=== PATIENT | male | born 1970 | race Caucasian/White ===

== ENCOUNTER 2018-10-02 21:07 | Inpatient (IN) | payer MEDICARE ==
[2018-10-02] MEDS ORDERED: HYDROcodone/Acetaminophen 5/325 mg Tablet ONE (22:31)
[2018-10-02 23:15] LABS: Troponin I Less than 0.010 ng/mL (< 0.028)
[2018-10-02] MEDS ORDERED: Ondansetron PF 4 MG/2 ML Vial IVP PRN (23:16)
[2018-10-02] MEDS ORDERED: Acetaminophen 325 MG TAB PO PRN (23:16)
[2018-10-02] MEDS ORDERED: Ondansetron ODT 4 MG TAB PO PRN (23:16)
[2018-10-02] MEDS ORDERED: Acetaminophen 650 MG Suppository PR PRN (23:16)
[2018-10-02] MEDS ORDERED: Senokot S 8.6-50 MG TAB PO PRN (23:16)
[2018-10-02] MEDS ORDERED: Dextrose 50% Abboject 50 ML SYRINGE SLOW IVP PRN (23:18)
[2018-10-02] MEDS ORDERED: HumaLOG 300 UNITS/3 ML VIAL SC PRN (23:18)
[2018-10-02] MEDS ORDERED: Dextrose 5% in Water 1,000 ML IV PRN (23:18)
[2018-10-02 23:36] VITALS: BMI 45.3
--- NOTE | 2018-10-03 00:26 | HP ---
REASON FOR ADMISSION: Right lower leg cellulitis. HISTORY OF PRESENT ILLNESS: Mr. Sal is a pleasant 48-year-old man with pain and erythema to the right lower leg. The patient states he had not noted a recurrent cellulitic infection until today when he was brought in to the ER at [place] by EMS after developing significant rigors during his Bible study this morning. He was noted to have a temperature of 102. It was until he was examined in the ER when it was noted he had redness and cellulitic appearance of the right lower leg to medial aspect of the right lower leg. He states he has had similar infections to the same location 4 times in the last few years. The patient was started on IV antibiotics with vancomycin as well as Zosyn. He was then transferred here. The patient states he had 1 episode of vomiting after drinking orange juice early hours this morning. He states he felt generally unwell since then. His rigors has settled as has his temperature. He reports recent diagnosis of diabetes mellitus and was started on metformin as well as insulin. He is unsure what type of insulin, but states he takes 6 units twice a day. The patient has run out of his medications and is not currently taking them. He admits to have poor compliance with medications and following up with his primary care physician. He also states he has been awaiting bariatric surgery. REVIEW OF SYSTEMS: He denies having any chest pain, palpitations, or shortness of breath. He has not had a cough. No further vomiting since the 1 episode early hours this morning. Denies having any abdominal pain. He has not moved his bowels today, but reports having a normal bowel movement yesterday. Denies having any dysuria, hematuria. He did have further tracking of the right lower leg cellulitis and new borders were drawn by the nurse practitioner at [place]. He had established his own border at home prior to coming in in order to assess for progression. It has been some further slight spreading past border than at [place]. He denies having any wounds or abscesses. Denies having any other skin changes. Denies any headaches or dizziness. All other review of systems is negative. ALLERGIES: NO KNOWN DRUG ALLERGIES. CURRENT MEDICATIONS: 1. Metformin. 2. Insulin, unknown type. PAST MEDICAL HISTORY: 1. Cardiac contusion causing atrial fibrillation, status post ablation, resolved. 2. Hyperlipidemia. 3. History of recurrent cellulitic infections of the right lower leg. 4. Type 2 diabetes mellitus. 5. Morbid obesity, awaiting bariatric surgery. 6. Bipolar disorder. PAST SURGICAL HISTORY: 1. Appendectomy in 1999. 2. Orthopedic surgery to the left hand/finger in 1987. SOCIAL HISTORY: The patient lives with his . He denies any alcohol use. He is a nonsmoker. Denies any illicit drug use. PHYSICAL EXAMINATION: GENERAL: The patient appears morbidly obese, in no acute distress. VITAL SIGNS: Temperature 99.7, pulse 77, respirations 16, O2 saturation 95% on room air, and blood pressure 131/81. HEENT: Normocephalic and atraumatic. Pupils are equal, round, and reactive to light. Sclerae are anicteric. Oropharynx is clear. NECK: Supple without lymphadenopathy. LUNGS: Clear to auscultation bilaterally without wheezes, rales, or rhonchi. CARDIAC: Regular rate and rhythm without audible murmurs, rubs, or gallops. ABDOMEN: Soft, nontender, nondistended. Normoactive bowel sounds present. EXTREMITIES: Notable for erythema to the medial aspect of the right lower leg extending from right above the medial malleolus to the upper third of medial lower leg. Erythema is non-blanching. Leg is tender to palpation. Pulses are present bilaterally and equal. NEUROLOGIC: Alert and oriented x3. LABORATORY DATA: White blood count 11.1, hemoglobin 15.5, hematocrit 49, and platelets 199. Sodium 134, potassium 4.5, BUN 12, creatinine 1.99, GFR 72, glucose 254, lactic acid 1.4, calcium 10.4, total bilirubin 0.8, AST 22, ALT 33, alkaline phosphatase 63. Troponin negative. Albumin 4.4. IMAGING DATA: None. IMPRESSION AND PLAN: Mr. Sal is a pleasant 48-year-old male, being admitted for management of the followin. Recurrent right lower leg cellulitis. He has been initiated on IV antibiotics. We will on continue antibiotics. We will continue to monitor for improvement. 2. Diabetes mellitus. The patient recently diagnosed with noncompliant with medications due to running out and not following up with PCP. We will initiate insulin sliding scale. The patient will obtain details of his medications. We will monitor glucose and resume home medications once we verify the medications that he is on. 3. Gastrointestinal prophylaxis. 4. Deep venous thrombosis prophylaxis. 5. Code status. The patient is a full code status and his surrogate decision maker is his , Kristi Sal. The patient's case was discussed with Dr. Cowart, who agrees with plan of care as described above. Job ID: [id number]
[2018-10-03] MEDS: Piperacillin/Tazobactam 3.375 GM in Sodium Chloride 0.9% 100 ML IVPB SCH ×4 (02:08→20:28)
[2018-10-03] MEDS: Vancomycin HCl 1.75 GM in Sodium Chloride 0.9% 500 ML IVPB SCH ×3 (03:09→17:31)
[2018-10-03] MEDS ORDERED: Vancomycin HCl 1.75 GM in Sodium Chloride 0.9% 500 ML IVPB SCH (06:00)
[2018-10-03] MEDS ORDERED: Vancomycin HCl 1 GM in Sodium Chloride 0.9% 250 ML 250 ML IVPB SCH (06:15)
[2018-10-03] MEDS: HumaLOG 300 UNITS/3 ML VIAL SC PRN ×3 (06:29→17:32)
[2018-10-03 06:47] LABS: #Basophils 0.1 thou/uL (0.0-0.2); #Eosinphils 0.1 thou/uL (0.0-0.7); #Neutrophils 6.1 thou/uL (1.40-6.50); %Basophils 0.7 % (0.0-1.0); %Eosinophils 0.7 % (0.0-10.0); %Lymphocytes 12.2 % (21.0-51.0); %Monocytes 12.5 % (0.0-10.0); Hemoglobin 15.3 g/dL (14.0-18.0); Mean Corpuscular HGB CONC 32.6 g/dL (32.0-36.0); Mean Corpuscular Hemoglobin 29.9 pg (27.0-31.0); Mean Corpuscular Volume 91.7 fL (78.0-98.0); Mean Platelet Volume 7.6 fL (7.4-10.4); Platelet Count 173 thou/uL (130-400); RBC Distribution Width 12.3 % (11.5-14.5); Red Blood Cell (RBC) Count 5.11 mill/uL (4.70-6.10); White Blood Cell (WBC) Count 8.2 thou/uL (4.8-10.8)
[2018-10-03 07:10] LABS: Anion Gap 13 mmol/L (10-20); BUN (Urea Nitrogen) 13 mg/dL (8.9-20.6); Calc. Creatinine Clearance 223 mL/min (70-130); Calcium 9.4 mg/dL (7.8-10.44); Carbon Dioxide 28 mmol/L (22-29); Chloride 99 mmol/L (98-107); Estimated GFR-MDRD 84; Glucose 269 mg/dL (70-105); Sodium 136 mmol/L (136-145)
[2018-10-03] MEDS: Famotidine/PF 20 mg/2ml Vial SLOW IVP SCH ×2 (08:45→20:27)
[2018-10-03] MEDS ORDERED: Zolpidem Tartrate 5 MG TAB PO PRN (09:17)
--- NOTE | 2018-10-03 09:43 | PRG ---
DATE OF SERVICE: 10/03/2018 SUBJECTIVE: The patient reports his leg is not doing as well and seems to have spread. Feels like he needs something for pain and requests something for sleep as well. He is also concerned that he has a circulation issue related to his recurrent cellulitis. OBJECTIVE: VITAL SIGNS: Temperature is 98.0, pulse 76, respirations 20, O2 sat 96% on room air, and blood pressure is 104/63. GENERAL APPEARANCE: Morbidly obese male. He is in no distress. He is awake, alert, oriented, pleasant, and cooperative. HEART: Regular rate and rhythm without murmurs, gallops, or rubs. LUNGS: Clear to auscultation bilaterally. ABDOMEN: Soft, nontender, and nondistended. Positive bowel sounds. No masses. No organomegaly. EXTREMITIES: Right lower extremity has area of dense erythema anteriorly with expansion going upward and downward and fairly circumferential to the calf. It is outside of the demarcated borders from presentation and from followup to his presentation onto the medical floor. There is some tenderness to palpation, blanching peripherally, but not so much centrally. LABORATORY DATA: White count is 8.2, hemoglobin 15.3, and platelets 173. Sodium 136, potassium 4.0, chloride 99, CO2 is 28, BUN 13, creatinine 0.95, glucose 226 to 282. Hemoglobin A1c is 10.0. Calcium 9.4. IMPRESSION AND PLAN: 1. Cellulitis of the right calf area and this is the patient's 4th bout of cellulitis in the same area. I reassured him that this did not appear to be a circulatory issue and that this is common to have some recurrent cellulitis especially in morbidly obese patients with diabetes. He has had some initial expansion of the inflammation, which may be simply due to the bacteriocidal effect of the vancomycin. He is not febrile and his white count is better. We will continue with the vancomycin and Zosyn for now. He will likely need to have some long-term suppression with oral antibiotics at the time of discharge. He will also need to control his blood sugars better and hopefully work on the weight loss as well. We will go ahead and give him some oral pain medications as well. 2. Diabetes mellitus. Blood sugars are still running high. We will try to increase his sliding scale if he is not having some improvement by tomorrow with the improvement of the infection. 3. We will provide a mild sleep aid. 4. Morbid obesity. The patient is trying to move in the direction of bariatric procedure. Job ID: [id number]
[2018-10-03] MEDS: Saccharomyces boulardii 250 MG CAP PO SCH ×2 (09:59→20:27)
[2018-10-03] MEDS: HYDROcodone/Acetaminophen 5/325 mg Tablet PO PRN ×2 (09:59→22:29)
[2018-10-03] MEDS ORDERED: Naproxen 500 MG TAB PO PRN (23:03)
[2018-10-03] MEDS ORDERED: lamoTRIgine 100 MG TAB PO SCH (23:15)
[2018-10-03] MEDS ORDERED: Naproxen 500 MG TAB PO SCH (23:30)
[2018-10-03] MEDS ORDERED: Lithium Carbonate 150 MG CAP PO SCH (23:30)
[2018-10-04] MEDS: Piperacillin/Tazobactam 3.375 GM in Sodium Chloride 0.9% 100 ML IVPB SCH ×3 (02:03→16:56)
[2018-10-04 02:57] LABS: Vancomycin, Random 11.7 ug/mL (See Comment)
[2018-10-04] MEDS: HYDROcodone/Acetaminophen 5/325 mg Tablet PO PRN ×2 (03:10→08:48)
[2018-10-04] MEDS: Vancomycin HCl 1.75 GM in Sodium Chloride 0.9% 500 ML IVPB SCH (03:43)
[2018-10-04] MEDS: HumaLOG 300 UNITS/3 ML VIAL SC PRN ×3 (06:31→16:56)
[2018-10-04] MEDS: Famotidine/PF 20 mg/2ml Vial SLOW IVP SCH (08:08)
[2018-10-04] MEDS: Saccharomyces boulardii 250 MG CAP PO SCH (08:08)
[2018-10-04 11:41] VITALS: TEMP 97.8
[2018-10-04 16:50] VITALS: BP 121/73
[2018-10-04] MEDS ORDERED: Sulfameth/Trimethoprim DS 800-160mg TAB PO SCH (21:00)
[2018-10-04] MEDS ORDERED: Lithium Carbonate 150 MG CAP PO SCH (21:00)
[2018-10-04] MEDS ORDERED: lamoTRIgine 100 MG TAB PO SCH (21:00)
== END 2018-10-04 18:22 | disposition home or self-care (01) | DRG 603 ==
LOC: ERS 21:07 → T4-A 21:45
PROVIDERS: ADMIT Family Medicine; ATTEND Family Medicine
DX: L03.115 Cellulitis of right lower limb (principal); Z68.42 Body mass index [BMI] 45.0-49.9, adult; E78.5 Hyperlipidemia, unspecified; E11.9 Type 2 diabetes mellitus without complications; E66.01 Morbid (severe) obesity due to excess calories; F31.9 Bipolar disorder, unspecified; Z90.49 Acquired absence of other specified parts of digestive tract; Z79.4 Long term (current) use of insulin; Z98.890 Other specified postprocedural states
CPT/HCPCS: 36415; 36416; 80048; 80202; 83036; 84484; 85025; 93005; J2543; J3370; J7050; S0028

== ENCOUNTER 2020-09-18 12:53 | Outpatient (CLI) | payer OTHER | END 2020-09-18 12:54 | disposition home or self-care (01) | LOC: TBSIIMAG 12:53 | PROVIDERS: ATTEND Legal Medicine | DX: M47.26 Other spondylosis with radiculopathy, lumbar region (principal); M48.061 Spinal stenosis, lumbar region without neurogenic claudication | CPT/HCPCS: 72148 ==

== ENCOUNTER 2021-02-19 | Outpatient (CLI) | payer OTHER | END 2021-02-19 10:48 | disposition home or self-care (01) ==

== ENCOUNTER 2021-06-17 10:28 | Inpatient (IN) | payer OTHER, SELFPAY ==
[2021-06-17] MEDS ORDERED: diphenhydrAMINE 50 MG/ML VIAL ONE (11:31)
[2021-06-17] MEDS ORDERED: Metoclopramide HCl 10 MG/2 ML VIAL ONE (11:31)
[2021-06-17] MEDS ORDERED: Acetaminophen 500 MG TAB ONE (11:31)
[2021-06-17 11:37] LABS: #Eosinphils 0.1 thou/uL (0.0-0.7); #Lymphocytes 1.4 thou/uL (1.20-3.40); #Monocytes 0.5 thou/uL (0.11-0.59); #Neutrophils 4.7 thou/uL (1.40-6.50); %Basophils 0.2 % (0.0-1.0); %Eosinophils 1.7 % (0.0-10.0); %Lymphocytes 20.8 % (21.0-51.0); %Neutrophils 70.4 % (42.0-75.0); Mean Corpuscular HGB CONC 33.3 g/dL (32.0-36.0); Mean Corpuscular Hemoglobin 30.5 pg (27.0-31.0); Mean Corpuscular Volume 91.5 fL (78.0-98.0); Platelet Count 192 thou/uL (130-400); RBC Distribution Width 12.9 % (11.5-14.5); Red Blood Cell (RBC) Count 5.59 mill/uL (4.70-6.10); White Blood Cell (WBC) Count 6.7 thou/uL (4.8-10.8)
[2021-06-17 11:55] LABS: ALT (SGPT) 23 U/L (8-55); AST (SGOT) 15 U/L (5-34); Albumin 4.2 g/dL (3.5-5.0); Alkaline Phosphatase 63 U/L (40-110); Anion Gap 13 mmol/L (10-20); BUN (Urea Nitrogen) 13 mg/dL (8.4-25.7); Bilirubin, Total 0.5 mg/dL (0.2-1.2); Calc. Creatinine Clearance 0 mL/min (70-130); Calcium 9.4 mg/dL (7.8-10.44); Carbon Dioxide 24 mmol/L (22-29); Chloride 103 mmol/L (98-107); Globulin 2.8 g/dL (2.4-3.5); Glucose 211 mg/dL (70-105); Potassium 4.3 mmol/L (3.5-5.1); Sodium 136 mmol/L (136-145)
[2021-06-17] MEDS ORDERED: Dexamethasone 10 MG/ML VIAL ONE (11:55)
[2021-06-17] MEDS ORDERED: Labetalol HCl 100 MG/20 ML VIAL ONE (11:55)
== END 2021-06-17 16:00 | disposition left against medical advice (07) | DRG 64 ==
LOC: ERS 10:28 → ERHOLD 13:43
PROVIDERS: ADMIT Student in an Organized Health Care Education/Training Program; ATTEND Student in an Organized Health Care Education/Training Program
DX: I63.9 Cerebral infarction, unspecified (principal); G93.6 Cerebral edema; I61.9 Nontraumatic intracerebral hemorrhage, unspecified; I16.1 Hypertensive emergency; I10 Essential (primary) hypertension; E78.5 Hyperlipidemia, unspecified; E11.9 Type 2 diabetes mellitus without complications; F31.9 Bipolar disorder, unspecified; Z90.49 Acquired absence of other specified parts of digestive tract
CPT/HCPCS: 70450; 80053; 85025; 93005; J1100; J1200; J2765

== ENCOUNTER 2021-06-22 03:04 | Inpatient (IN) | payer SELFPAY ==
[2021-06-22] MEDS ORDERED: Metoclopramide HCl 10 MG/2 ML VIAL ONE (05:06)
[2021-06-22] MEDS ORDERED: Magnesium 2 GM/50 ML BAG (IN WATER) ONE (05:06)
[2021-06-22] MEDS ORDERED: diphenhydrAMINE 50 MG/ML VIAL ONE (05:06)
[2021-06-22 05:13] LABS: #Eosinphils 0.1 thou/uL (0.0-0.7); #Lymphocytes 1.4 thou/uL (1.20-3.40); #Monocytes 0.9 thou/uL (0.11-0.59); #Neutrophils 7.7 thou/uL (1.40-6.50); %Basophils 0.5 % (0.0-1.0); %Eosinophils 0.9 % (0.0-10.0); %Lymphocytes 13.4 % (21.0-51.0); %Monocytes 8.7 % (0.0-10.0); %Neutrophils 76.5 % (42.0-75.0); Hemoglobin 16.9 g/dL (14.0-18.0); Mean Corpuscular HGB CONC 32.7 g/dL (32.0-36.0); Mean Corpuscular Hemoglobin 29.7 pg (27.0-31.0); Mean Corpuscular Volume 90.7 fL (78.0-98.0); Platelet Count 193 thou/uL (130-400); RBC Distribution Width 12.6 % (11.5-14.5); Red Blood Cell (RBC) Count 5.71 mill/uL (4.70-6.10); White Blood Cell (WBC) Count 10.1 thou/uL (4.8-10.8)
[2021-06-22 05:29] LABS: ALT (SGPT) 27 U/L (8-55); AST (SGOT) 16 U/L (5-34); Albumin 4.1 g/dL (3.5-5.0); Alkaline Phosphatase 63 U/L (40-110); Anion Gap 12 mmol/L (10-20); BUN (Urea Nitrogen) 14 mg/dL (8.4-25.7); Bilirubin, Total 0.9 mg/dL (0.2-1.2); Calc. Creatinine Clearance 0 mL/min (70-130); Calcium 9.3 mg/dL (7.8-10.44); Carbon Dioxide 25 mmol/L (22-29); Chloride 99 mmol/L (98-107); Globulin 2.9 g/dL (2.4-3.5); Glucose 343 mg/dL (70-105); Magnesium 1.7 mg/dL (1.6-2.6); Potassium 4.4 mmol/L (3.5-5.1); Sodium 132 mmol/L (136-145)
[2021-06-22] MEDS ORDERED: methylPREDNISolone Sod Succ/PF 125 MG/2 ML VIAL ONE (06:35)
[2021-06-22] MEDS ORDERED: Valproate Sodium 500 MG in Sodium Chloride 0.9% 100 ML IVPB SCH (07:15)
[2021-06-22] MEDS ORDERED: Fentanyl 100 MCG/2 ML VIAL ONE (09:32)
[2021-06-22] MEDS ORDERED: niCARdipine 20MG In NaCl 20 MG/200 ML BAG ONE (09:55)
[2021-06-22 11:12] LABS: INR-International Normal Ratio 1.1; Prothrombin Time 14.1 sec (12.0-14.7)
[2021-06-22 11:13] LABS: PTT 25.3 sec (22.9-36.1)
[2021-06-22] MEDS ORDERED: D5 1/2 NS w/20 mEq KCL 1,000 ML IV SCH (11:15)
[2021-06-22] MEDS ORDERED: Ondansetron PF 4 MG/2 ML Vial IVP PRN (11:15)
[2021-06-22] MEDS ORDERED: Ondansetron ODT 4 MG TAB SL PRN (11:15)
[2021-06-22 11:21] LABS: Troponin I Less than 0.010 ng/mL (< 0.028)
[2021-06-22 11:27] LABS: SARS-CoV-2 NAA Rapid Test Not Detected (NotDetected)
[2021-06-22] MEDS ORDERED: Acetaminophen 650 MG Suppository PR PRN (12:49)
[2021-06-22] MEDS: niCARdipine 25 MG in Sodium Chloride 0.9% 250 ML 250 ML IVPB SCH ×3 (13:00→18:49)
[2021-06-22] MEDS ORDERED: Dextrose 50% Abboject 50 ML SYRINGE SLOW IVP PRN (13:10)
[2021-06-22] MEDS ORDERED: Dextrose 5% in Water 1,000 ML IV PRN (13:10)
[2021-06-22 13:29] LABS: Hemoglobin A1c 10.1 % (4.0-6.0)
[2021-06-22 13:50] VITALS: BMI 51.5
[2021-06-22] MEDS ORDERED: niCARdipine 25 MG in Sodium Chloride 0.9% 250 ML 250 ML IVPB SCH (14:00)
[2021-06-22] MEDS: Acetaminophen 325 MG TAB PO PRN ×2 (14:03→19:59)
[2021-06-22] MEDS: HumaLOG 300 UNITS/3 ML VIAL SC PRN ×3 (14:03→21:42)
[2021-06-22] MEDS ORDERED: Melatonin 3 MG TAB PO PRN (19:57)
[2021-06-22] MEDS ORDERED: Atorvastatin Calcium 40 MG TAB PO SCH (21:00)
[2021-06-22] MEDS: Lisinopril 10 MG TAB PO SCH (21:16)
[2021-06-22] MEDS: HumuLIN 70/30 (300 UNITS/3 ML VIAL) SC SCH (21:16)
[2021-06-22] MEDS: niCARdipine 50 MG in Sodium Chloride 0.9% 250 ML 230 ML IV SCH (21:31)
[2021-06-22] MEDS ORDERED: Acetaminophen/Codeine 30-300mg Tablet PO PRN (23:46)
[2021-06-22] MEDS ORDERED: Cyclobenzaprine 10 MG TAB PO SCH (23:59)
[2021-06-23] MEDS ORDERED: Ondansetron PF 4 MG/2 ML Vial IVP PRN (00:51)
[2021-06-23] MEDS ORDERED: Ondansetron ODT 4 MG TAB PO PRN (00:51)
[2021-06-23] MEDS: niCARdipine 50 MG in Sodium Chloride 0.9% 250 ML 230 ML IV SCH ×2 (02:39→07:40)
[2021-06-23] MEDS: HumuLIN 70/30 (300 UNITS/3 ML VIAL) SC SCH (07:41)
[2021-06-23] MEDS: HumaLOG 300 UNITS/3 ML VIAL SC PRN ×3 (07:41→16:39)
[2021-06-23] MEDS: Lisinopril 10 MG TAB PO SCH (07:49)
[2021-06-23] MEDS ORDERED: Hydrochlorothiazide 25 MG TAB PO SCH (09:00)
[2021-06-23] MEDS ORDERED: HumuLIN 70/30 (300 UNITS/3 ML VIAL) SC SCH ×2 (09:35→21:00)
[2021-06-23] MEDS ORDERED: Lisinopril 10 MG TAB PO SCH (11:15)
[2021-06-23] MEDS ORDERED: Metoprolol Tartrate 50 MG TAB PO SCH (11:30)
[2021-06-23] MEDS: Acetaminophen 325 MG TAB PO PRN ×2 (11:51→17:14)
[2021-06-23 12:21] VITALS: BP 156/82
[2021-06-23 12:54] LABS: Cardiac Risk 5.1 (Less than 4.5)
[2021-06-23 14:36] VITALS: TEMP 98.7
[2021-06-23] MEDS ORDERED: Lisinopril 20 MG TAB PO SCH (21:00)
== END 2021-06-23 18:35 | disposition home or self-care (01) | DRG 64 ==
LOC: ERS 03:04 → CCU 10:41
PROVIDERS: ADMIT Family Medicine; ATTEND Family Medicine
PROC: 4A10X4Z Monitoring of Central Nervous Electrical Activity, External Approach (ICD-10-PCS; principal; 2021-06-23)
DX: I63.9 Cerebral infarction, unspecified (principal); I61.9 Nontraumatic intracerebral hemorrhage, unspecified; I62.00 Nontraumatic subdural hemorrhage, unspecified; I16.1 Hypertensive emergency; Z68.43 Body mass index [BMI] 50.0-59.9, adult; E11.9 Type 2 diabetes mellitus without complications; I48.91 Unspecified atrial fibrillation; E66.01 Morbid (severe) obesity due to excess calories; E78.5 Hyperlipidemia, unspecified; Z20.822 Contact with and (suspected) exposure to COVID-19; E11.649 Type 2 diabetes mellitus with hypoglycemia without coma; Z90.49 Acquired absence of other specified parts of digestive tract; Z79.4 Long term (current) use of insulin; Z79.899 Other long term (current) drug therapy
CPT/HCPCS: 0240U; 36415; 36416; 70450; 71045; 80053; 80061; 83036; 83735; 84443; 84484; 85025; 85610; 85730; 93005; 95712; 95819; 95957; J1200; J1815; J2405; J2765; J2930; J3010; J3475; J3490; J7050

== ENCOUNTER 2021-06-24 23:14 | Inpatient (IN) | payer SELFPAY, OTHER ==
[2021-06-24] MEDS ORDERED: Metoclopramide HCl 10 MG/2 ML VIAL ONE (23:57)
[2021-06-24] MEDS ORDERED: diphenhydrAMINE 50 MG/ML VIAL ONE (23:57)
[2021-06-25] MEDS ORDERED: Morphine 4 MG/ML VIAL ONE (01:06)
[2021-06-25] MEDS ORDERED: Ondansetron PF 4 MG/2 ML Vial ONE (01:11)
[2021-06-25] MEDS ORDERED: HYDROmorphone 0.5 MG/0.5 ML SYRINGE ONE (01:45)
[2021-06-25] MEDS ORDERED: Calcium Carbonate 500 MG ChewTAB PO PRN (01:53)
[2021-06-25] MEDS ORDERED: Bisacodyl 10 MG SUPP PR PRN (01:53)
[2021-06-25] MEDS ORDERED: Dextrose 5% in Water 1,000 ML IV PRN (01:53)
[2021-06-25] MEDS ORDERED: Dextrose 50% Abboject 50 ML SYRINGE SLOW IVP PRN (01:53)
[2021-06-25] MEDS ORDERED: Labetalol HCl 100 MG/20 ML VIAL SLOW IVP PRN (01:53)
[2021-06-25] MEDS ORDERED: Bisacodyl 5 MG TAB PO PRN (01:53)
[2021-06-25] MEDS ORDERED: Fentanyl 100 MCG/2 ML VIAL SLOW IVP PRN (02:09)
[2021-06-25] MEDS ORDERED: Naloxone HCl 0.4 mg/ml Vial IV PRN (02:32)
[2021-06-25 02:41] LABS: #Basophils 0.1 thou/uL (0.0-0.2); #Eosinphils 0.1 thou/uL (0.0-0.7); #Lymphocytes 2.5 thou/uL (1.20-3.40); #Monocytes 1.3 thou/uL (0.11-0.59); #Neutrophils 9.2 thou/uL (1.40-6.50); %Basophils 0.4 % (0.0-1.0); %Eosinophils 1.1 % (0.0-10.0); %Monocytes 9.7 % (0.0-10.0); %Neutrophils 69.9 % (42.0-75.0); Hemoglobin 17.1 g/dL (14.0-18.0); Mean Corpuscular HGB CONC 34.6 g/dL (32.0-36.0); Mean Corpuscular Hemoglobin 31.7 pg (27.0-31.0); Mean Corpuscular Volume 91.8 fL (78.0-98.0); Mean Platelet Volume 7.6 fL (7.4-10.4); Platelet Count 217 thou/uL (130-400); RBC Distribution Width 12.7 % (11.5-14.5); White Blood Cell (WBC) Count 13.2 thou/uL (4.8-10.8)
[2021-06-25 02:54] LABS: Anion Gap 15 mmol/L (10-20); BUN (Urea Nitrogen) 30 mg/dL (8.4-25.7); Calc. Creatinine Clearance 0 mL/min (70-130); Calcium 9.5 mg/dL (7.8-10.44); Carbon Dioxide 24 mmol/L (22-29); Chloride 102 mmol/L (98-107); Glucose 169 mg/dL (70-105); Magnesium 1.7 mg/dL (1.6-2.6); Potassium 4.3 mmol/L (3.5-5.1); Sodium 137 mmol/L (136-145)
[2021-06-25] MEDS: Lactated Ringer's 1,000 ML IV SCH ×2 (03:05→08:58)
[2021-06-25 04:04] VITALS: BMI 51.7
[2021-06-25] MEDS ORDERED: Promethazine HCl 25 MG in Sodium Chloride 0.9% 50 ML IVPB SCH (04:30)
[2021-06-25] MEDS ORDERED: Haloperidol Lactate 5 MG/ML VIAL IM SCH (05:15)
[2021-06-25] MEDS: Acetaminophen 500 MG TAB PO SCH ×3 (05:42→22:02)
[2021-06-25] MEDS: HumaLOG 300 UNITS/3 ML VIAL SC PRN ×4 (05:50→22:04)
[2021-06-25] MEDS: Lisinopril 20 MG TAB PO SCH ×2 (08:40→20:35)
[2021-06-25] MEDS: Atorvastatin Calcium 40 MG TAB PO SCH (08:40)
[2021-06-25] MEDS ORDERED: Hydrochlorothiazide 25 MG TAB PO SCH (09:00)
[2021-06-25] MEDS ORDERED: Semaglutide [Rybelsus] 3 MG Tablet PO SCH (09:00)
[2021-06-25] MEDS ORDERED: metFORMIN 500 MG TAB PO SCH (09:00)
[2021-06-25] MEDS: HumuLIN 70/30 (300 UNITS/3 ML VIAL) SC SCH ×2 (09:53→22:04)
[2021-06-25] MEDS ORDERED: hydrALAZINE 20 MG/ML VIAL SLOW IVP PRN ×2 (12:14→18:00)
[2021-06-25] MEDS ORDERED: hydrALAZINE 20 MG/ML VIAL IM PRN ×2 (12:46→12:51)
[2021-06-25] MEDS ORDERED: hydrALAZINE 20 MG/ML VIAL SLOW IVP SCH ×2 (14:30→15:45)
[2021-06-25] MEDS: Senokot S 8.6-50 MG TAB PO PRN (16:10)
[2021-06-25] MEDS ORDERED: Carvedilol 6.25 MG TAB PO SCH (17:00)
[2021-06-25] MEDS ORDERED: Haloperidol Lactate 5 MG/ML VIAL SLOW IVP SCH (17:00)
[2021-06-25] MEDS ORDERED: diphenhydrAMINE 50 MG/ML VIAL IVP SCH (17:00)
[2021-06-25] MEDS: niCARdipine 25 MG in Sodium Chloride 0.9% 250 ML 250 ML IVPB SCH ×2 (19:22→22:49)
[2021-06-25] MEDS: Hydrochlorothiazide 25 MG TAB PO SCH (20:35)
[2021-06-25] MEDS: Morphine 4 MG/ML VIAL SLOW IVP PRN (22:02)
[2021-06-26] MEDS: niCARdipine 50 MG in Sodium Chloride 0.9% 250 ML 250 ML IV SCH ×5 (02:03→20:31)
[2021-06-26] MEDS: Acetaminophen 500 MG TAB PO SCH ×3 (05:12→21:05)
[2021-06-26] MEDS: Morphine 4 MG/ML VIAL SLOW IVP PRN ×2 (05:13→22:33)
[2021-06-26] MEDS: HumaLOG 300 UNITS/3 ML VIAL SC PRN ×4 (06:29→21:09)
[2021-06-26] MEDS ORDERED: Ibuprofen 600 MG TAB PO PRN (07:57)
[2021-06-26] MEDS ORDERED: NIFEdipine XL 30 MG TAB PO SCH (09:00)
[2021-06-26] MEDS: Carvedilol 3.125 MG TAB PO SCH ×2 (09:20→17:33)
[2021-06-26] MEDS: Hydrochlorothiazide 25 MG TAB PO SCH ×2 (09:21→21:05)
[2021-06-26] MEDS: Atorvastatin Calcium 40 MG TAB PO SCH (09:21)
[2021-06-26] MEDS: Lisinopril 20 MG TAB PO SCH ×2 (09:21→21:06)
[2021-06-26] MEDS: HumuLIN 70/30 (300 UNITS/3 ML VIAL) SC SCH ×2 (09:22→21:10)
[2021-06-26 10:35] LABS: #Eosinphils 0.1 thou/uL (0.0-0.7); #Lymphocytes 1.5 thou/uL (1.20-3.40); #Neutrophils 8.2 thou/uL (1.40-6.50); %Basophils 0.2 % (0.0-1.0); %Eosinophils 0.9 % (0.0-10.0); %Lymphocytes 13.8 % (21.0-51.0); %Monocytes 9.5 % (0.0-10.0); %Neutrophils 75.6 % (42.0-75.0); Hemoglobin 19.4 g/dL (14.0-18.0); Mean Corpuscular HGB CONC 35.1 g/dL (32.0-36.0); Mean Corpuscular Volume 91.3 fL (78.0-98.0); Mean Platelet Volume 7.5 fL (7.4-10.4); Platelet Count 193 thou/uL (130-400); RBC Distribution Width 12.7 % (11.5-14.5); Red Blood Cell (RBC) Count 6.07 mill/uL (4.70-6.10); White Blood Cell (WBC) Count 10.8 thou/uL (4.8-10.8)
[2021-06-26 10:56] LABS: ALT (SGPT) 25 U/L (8-55); AST (SGOT) 15 U/L (5-34); Albumin 4.1 g/dL (3.5-5.0); Alkaline Phosphatase 62 U/L (40-110); Anion Gap 13 mmol/L (10-20); BUN (Urea Nitrogen) 20 mg/dL (8.4-25.7); Bilirubin, Total 1.1 mg/dL (0.2-1.2); Calc. Creatinine Clearance 152 mL/min (70-130); Calcium 9.5 mg/dL (7.8-10.44); Carbon Dioxide 24 mmol/L (22-29); Chloride 100 mmol/L (98-107); Globulin 2.5 g/dL (2.4-3.5); Glucose 285 mg/dL (70-105); Protein, Total 6.6 g/dL (6.0-8.3); Sodium 133 mmol/L (136-145)
[2021-06-27] MEDS: Morphine 4 MG/ML VIAL SLOW IVP PRN ×4 (02:38→20:27)
[2021-06-27] MEDS: Acetaminophen 500 MG TAB PO SCH ×3 (06:01→22:33)
[2021-06-27] MEDS: niCARdipine 50 MG in Sodium Chloride 0.9% 250 ML 250 ML IV SCH (06:02)
[2021-06-27] MEDS: HumaLOG 300 UNITS/3 ML VIAL SC PRN ×3 (06:07→21:04)
[2021-06-27 08:13] LABS: #Basophils 0.1 thou/uL (0.0-0.2); #Eosinphils 0.2 thou/uL (0.0-0.7); #Lymphocytes 1.8 thou/uL (1.20-3.40); #Monocytes 1.1 thou/uL (0.11-0.59); #Neutrophils 9.8 thou/uL (1.40-6.50); %Basophils 0.5 % (0.0-1.0); %Eosinophils 1.6 % (0.0-10.0); %Lymphocytes 14.1 % (21.0-51.0); %Monocytes 8.2 % (0.0-10.0); %Neutrophils 75.6 % (42.0-75.0); Hemoglobin 19.5 g/dL (14.0-18.0); Mean Corpuscular HGB CONC 34.3 g/dL (32.0-36.0); Mean Corpuscular Hemoglobin 31.4 pg (27.0-31.0); Mean Corpuscular Volume 91.7 fL (78.0-98.0); Mean Platelet Volume 7.3 fL (7.4-10.4); Platelet Count 223 thou/uL (130-400); RBC Distribution Width 12.9 % (11.5-14.5); Red Blood Cell (RBC) Count 6.22 mill/uL (4.70-6.10); White Blood Cell (WBC) Count 12.9 thou/uL (4.8-10.8)
[2021-06-27 08:37] LABS: Anion Gap 13 mmol/L (10-20); BUN (Urea Nitrogen) 19 mg/dL (8.4-25.7); Calc. Creatinine Clearance 128 mL/min (70-130); Calcium 9.6 mg/dL (7.8-10.44); Carbon Dioxide 23 mmol/L (22-29); Chloride 102 mmol/L (98-107); Glucose 180 mg/dL (70-105); Potassium 4.6 mmol/L (3.5-5.1); Sodium 133 mmol/L (136-145)
[2021-06-27] MEDS: Hydrochlorothiazide 25 MG TAB PO SCH ×2 (08:37→21:14)
[2021-06-27] MEDS: metFORMIN 500 MG TAB PO SCH ×2 (08:37→16:10)
[2021-06-27] MEDS: Atorvastatin Calcium 40 MG TAB PO SCH (08:37)
[2021-06-27] MEDS: NIFEdipine XL 60 MG TAB PO SCH (08:37)
[2021-06-27] MEDS: Lisinopril 20 MG TAB PO SCH ×2 (08:37→21:14)
[2021-06-27] MEDS: Carvedilol 3.125 MG TAB PO SCH ×2 (08:38→16:10)
[2021-06-27] MEDS: HumuLIN 70/30 (300 UNITS/3 ML VIAL) SC SCH ×2 (08:41→21:05)
[2021-06-27] MEDS ORDERED: Metoprolol Tartrate 5 MG/5 ML VIAL IVP SCH ×2 (09:15→15:15)
[2021-06-27] MEDS ORDERED: Metoprolol Tartrate 5 MG/5 ML VIAL ONE (09:25)
[2021-06-27] MEDS ORDERED: Amiodarone 150 MG in Dextrose 5% in Water 100 ML IVPB SCH ×2 (10:15→11:45)
[2021-06-27 10:44] LABS: Magnesium 1.7 mg/dL (1.6-2.6); Phosphorus 3.2 mg/dL (2.3-4.7)
[2021-06-27] MEDS ORDERED: Morphine 4 MG/ML VIAL SLOW IVP SCH (10:45)
[2021-06-27] MEDS: Amiodarone 450 MG in Dextrose 5% in Water 250 ML IVPB SCH ×2 (11:38→18:17)
[2021-06-27] MEDS ORDERED: Flecainide 50 MG TAB PO SCH (17:00)
[2021-06-27] MEDS: Senokot S 8.6-50 MG TAB PO PRN (18:31)
[2021-06-28] MEDS: Ondansetron PF 4 MG/2 ML Vial IVP PRN ×3 (00:22→20:25)
[2021-06-28] MEDS: Morphine 4 MG/ML VIAL SLOW IVP PRN ×4 (00:51→20:23)
[2021-06-28] MEDS: Amiodarone 450 MG in Dextrose 5% in Water 250 ML IVPB SCH (02:55)
[2021-06-28] MEDS: Acetaminophen 500 MG TAB PO SCH ×3 (05:34→20:23)
[2021-06-28] MEDS: HumaLOG 300 UNITS/3 ML VIAL SC PRN ×3 (05:38→17:29)
[2021-06-28 08:09] LABS: #Basophils 0.1 thou/uL (0.0-0.2); #Eosinphils 0.1 thou/uL (0.0-0.7); #Lymphocytes 2.6 thou/uL (1.20-3.40); #Monocytes 1.7 thou/uL (0.11-0.59); #Neutrophils 14.1 thou/uL (1.40-6.50); %Basophils 0.3 % (0.0-1.0); %Eosinophils 0.7 % (0.0-10.0); %Lymphocytes 14.2 % (21.0-51.0); %Neutrophils 75.8 % (42.0-75.0); Hemoglobin 19.4 g/dL (14.0-18.0); Mean Corpuscular HGB CONC 34.1 g/dL (32.0-36.0); Mean Corpuscular Hemoglobin 31.4 pg (27.0-31.0); Mean Corpuscular Volume 92.1 fL (78.0-98.0); Mean Platelet Volume 7.4 fL (7.4-10.4); Platelet Count 240 thou/uL (130-400); RBC Distribution Width 12.9 % (11.5-14.5); Red Blood Cell (RBC) Count 6.17 mill/uL (4.70-6.10); White Blood Cell (WBC) Count 18.6 thou/uL (4.8-10.8)
[2021-06-28] MEDS: Hydrochlorothiazide 25 MG TAB PO SCH ×2 (08:48→20:22)
[2021-06-28] MEDS: metFORMIN 500 MG TAB PO SCH ×2 (08:48→16:22)
[2021-06-28] MEDS: Atorvastatin Calcium 40 MG TAB PO SCH (08:49)
[2021-06-28] MEDS: HumuLIN 70/30 (300 UNITS/3 ML VIAL) SC SCH ×2 (08:52→20:24)
[2021-06-28] MEDS: NIFEdipine XL 60 MG TAB PO SCH (08:56)
[2021-06-28] MEDS: Carvedilol 3.125 MG TAB PO SCH ×2 (08:58→16:23)
[2021-06-28] MEDS: Lisinopril 20 MG TAB PO SCH (08:59)
[2021-06-28 09:53] LABS: Chloride 98 mmol/L (98-107); Potassium 4.4 mmol/L (3.5-5.1); Sodium 131 mmol/L (136-145)
[2021-06-28 09:54] LABS: Calcium 9.5 mg/dL (7.8-10.44); Glucose 261 mg/dL (70-105)
[2021-06-28 09:56] LABS: Anion Gap 12 mmol/L (10-20); Carbon Dioxide 25 mmol/L (22-29)
[2021-06-28 09:57] LABS: Calc. Creatinine Clearance 112 mL/min (70-130)
[2021-06-28 09:58] LABS: BUN (Urea Nitrogen) 25 mg/dL (8.4-25.7)
[2021-06-28] MEDS ORDERED: Metoprolol Tartrate 5 MG/5 ML VIAL IVP SCH (16:30)
[2021-06-28] MEDS: Senokot S 8.6-50 MG TAB PO PRN (20:22)
[2021-06-29] MEDS ORDERED: Milk Of Magnesia 30 ML UDCUP PO PRN (01:08)
[2021-06-29] MEDS: Morphine 4 MG/ML VIAL SLOW IVP PRN ×2 (02:20→23:09)
[2021-06-29] MEDS ORDERED: diphenhydrAMINE 12.5 MG/5 ML UDCUP PO SCH (06:30)
[2021-06-29] MEDS ORDERED: Metoclopramide 10 MG/10 ML UDCUP PO SCH (06:30)
[2021-06-29] MEDS: Acetaminophen 500 MG TAB PO SCH ×3 (06:34→20:39)
[2021-06-29 08:22] LABS: Anion Gap 13 mmol/L (10-20); BUN (Urea Nitrogen) 26 mg/dL (8.4-25.7); Calc. Creatinine Clearance 134 mL/min (70-130); Calcium 9.6 mg/dL (7.8-10.44); Carbon Dioxide 24 mmol/L (22-29); Chloride 97 mmol/L (98-107); Glucose 173 mg/dL (70-105); Potassium 4.2 mmol/L (3.5-5.1); Sodium 130 mmol/L (136-145)
[2021-06-29 08:29] LABS: Band 5 % (5-11); Hemoglobin 18.2 g/dL (14.0-18.0); Lymphocytes 6 % (21-51); MDiff Complete? YES; Mean Corpuscular HGB CONC 32.2 g/dL (32.0-36.0); Mean Corpuscular Hemoglobin 29.4 pg (27.0-31.0); Mean Corpuscular Volume 91.3 fL (78.0-98.0); Mean Platelet Volume 7.7 fL (7.4-10.4); Monocytes 10 % (0-10); Neutrophil 72 % (42-75); Platelet Count 221 thou/uL (130-400); Platelet Morphology Comment Appears Adequate; RBC Distribution Width 12.8 % (11.5-14.5); RBC Morphology Normal; Reactive Lymphocytes 7 % (0-10); White Blood Cell (WBC) Count 20.4 thou/uL (4.8-10.8)
[2021-06-29] MEDS: metFORMIN 500 MG TAB PO SCH ×2 (09:22→17:40)
[2021-06-29] MEDS: Atorvastatin Calcium 40 MG TAB PO SCH (09:22)
[2021-06-29] MEDS: Hydrochlorothiazide 25 MG TAB PO SCH ×2 (09:23→20:40)
[2021-06-29] MEDS: Lisinopril 20 MG TAB PO SCH (09:23)
[2021-06-29] MEDS: NIFEdipine XL 60 MG TAB PO SCH (09:23)
[2021-06-29] MEDS: HumuLIN 70/30 (300 UNITS/3 ML VIAL) SC SCH ×2 (09:24→20:51)
[2021-06-29] MEDS ORDERED: Polyethylene Glycol 3350 17 GM Packet PO SCH (10:00)
[2021-06-29] MEDS: diphenhydrAMINE 50 MG CAP PO SCH (20:39)
[2021-06-29] MEDS: Ondansetron PF 4 MG/2 ML Vial IVP PRN (23:09)
[2021-06-30] MEDS: Acetaminophen 500 MG TAB PO SCH ×3 (05:32→21:35)
[2021-06-30] MEDS: Ondansetron PF 4 MG/2 ML Vial IVP PRN ×2 (06:53→21:34)
[2021-06-30] MEDS: Morphine 4 MG/ML VIAL SLOW IVP PRN ×3 (06:55→21:59)
[2021-06-30] MEDS: HumaLOG 300 UNITS/3 ML VIAL SC PRN (06:56)
[2021-06-30 07:27] LABS: Hemoglobin 17.7 g/dL (14.0-18.0); Mean Corpuscular Volume 91.1 fL (78.0-98.0); Mean Platelet Volume 7.7 fL (7.4-10.4); Platelet Count 210 thou/uL (130-400); RBC Distribution Width 12.6 % (11.5-14.5); White Blood Cell (WBC) Count 17.2 thou/uL (4.8-10.8)
[2021-06-30 07:32] LABS: Anion Gap 12 mmol/L (10-20); BUN (Urea Nitrogen) 30 mg/dL (8.4-25.7); Calc. Creatinine Clearance 117 mL/min (70-130); Calcium 9.6 mg/dL (7.8-10.44); Carbon Dioxide 27 mmol/L (22-29); Chloride 97 mmol/L (98-107); Glucose 138 mg/dL (70-105); Potassium 4.1 mmol/L (3.5-5.1); Sodium 132 mmol/L (136-145)
[2021-06-30 07:58] LABS: Band 3 % (5-11); Eosinophils 2 % (0-10); Lymphocytes 16 % (21-51); MDiff Complete? YES; Monocytes 12 % (0-10); Neutrophil 64 % (42-75); RBC Morphology Normal; Reactive Lymphocytes 3 % (0-10)
[2021-06-30] MEDS: Hydrochlorothiazide 25 MG TAB PO SCH ×2 (09:38→21:35)
[2021-06-30] MEDS: Atorvastatin Calcium 40 MG TAB PO SCH (09:38)
[2021-06-30] MEDS: metFORMIN 500 MG TAB PO SCH ×2 (09:38→17:12)
[2021-06-30] MEDS: Lisinopril 20 MG TAB PO SCH ×2 (09:39→09:40)
[2021-06-30] MEDS ORDERED: diphenhydrAMINE 50 MG/ML VIAL IVP PRN (09:39)
[2021-06-30] MEDS: NIFEdipine XL 60 MG TAB PO SCH (09:39)
[2021-06-30] MEDS: Polyethylene Glycol 3350 17 GM Packet PO SCH (09:42)
[2021-06-30] MEDS ORDERED: Iopamidol-370 76% 500 ML 1 ML ONE (09:59)
[2021-06-30] MEDS: HumuLIN 70/30 (300 UNITS/3 ML VIAL) SC SCH ×2 (10:50→21:34)
[2021-06-30] MEDS: Metoclopramide HCl 10 MG/2 ML VIAL IVP PRN ×2 (10:56→13:14)
[2021-06-30] MEDS: diphenhydrAMINE 50 MG CAP PO SCH (21:35)
[2021-07-01] MEDS: Ondansetron PF 4 MG/2 ML Vial IVP PRN ×3 (02:19→20:01)
[2021-07-01] MEDS: Morphine 4 MG/ML VIAL SLOW IVP PRN ×4 (02:23→20:03)
[2021-07-01] MEDS: Melatonin 3 MG TAB PO PRN ×2 (02:23→20:04)
[2021-07-01] MEDS: Acetaminophen 500 MG TAB PO SCH ×3 (04:47→21:23)
[2021-07-01] MEDS: HumaLOG 300 UNITS/3 ML VIAL SC PRN ×2 (06:23→12:06)
[2021-07-01 08:59] LABS: Anion Gap 11 mmol/L (10-20); BUN (Urea Nitrogen) 24 mg/dL (8.4-25.7); Calc. Creatinine Clearance 266 mL/min (70-130); Calcium 9.3 mg/dL (7.8-10.44); Carbon Dioxide 30 mmol/L (22-29); Chloride 96 mmol/L (98-107); Glucose 163 mg/dL (70-105); Potassium 4.2 mmol/L (3.5-5.1); Sodium 133 mmol/L (136-145)
[2021-07-01] MEDS: metFORMIN 500 MG TAB PO SCH ×2 (10:00→17:21)
[2021-07-01] MEDS: NIFEdipine XL 60 MG TAB PO SCH (10:03)
[2021-07-01] MEDS: Hydrochlorothiazide 25 MG TAB PO SCH ×2 (10:03→20:05)
[2021-07-01] MEDS: Polyethylene Glycol 3350 17 GM Packet PO SCH (10:04)
[2021-07-01] MEDS: HYDROcodone/Acetaminophen 5/325 mg Tablet PO SCH ×3 (12:00→21:23)
[2021-07-01] MEDS: HumuLIN 70/30 (300 UNITS/3 ML VIAL) SC SCH ×2 (12:01→21:24)
[2021-07-01] MEDS: diphenhydrAMINE 50 MG CAP PO SCH (20:04)
[2021-07-02] MEDS: Morphine 4 MG/ML VIAL SLOW IVP PRN ×3 (00:01→11:31)
[2021-07-02 04:08] LABS: Anion Gap 13 mmol/L (10-20); BUN (Urea Nitrogen) 19 mg/dL (8.4-25.7); Calc. Creatinine Clearance 288 mL/min (70-130); Calcium 9.3 mg/dL (7.8-10.44); Carbon Dioxide 24 mmol/L (22-29); Chloride 97 mmol/L (98-107); Glucose 108 mg/dL (70-105); Potassium 3.9 mmol/L (3.5-5.1); Sodium 130 mmol/L (136-145)
[2021-07-02] MEDS: HYDROcodone/Acetaminophen 5/325 mg Tablet PO SCH ×4 (04:15→23:54)
[2021-07-02] MEDS: Acetaminophen 500 MG TAB PO SCH ×3 (05:29→21:37)
[2021-07-02] MEDS: Ondansetron PF 4 MG/2 ML Vial IVP PRN ×2 (05:30→11:32)
[2021-07-02] MEDS: NIFEdipine XL 60 MG TAB PO SCH (09:24)
[2021-07-02] MEDS: Lisinopril 20 MG TAB PO SCH (09:24)
[2021-07-02] MEDS: metFORMIN 500 MG TAB PO SCH ×2 (09:25→16:46)
[2021-07-02] MEDS: Hydrochlorothiazide 25 MG TAB PO SCH ×2 (09:26→21:38)
[2021-07-02] MEDS: HumuLIN 70/30 (300 UNITS/3 ML VIAL) SC SCH ×2 (09:26→21:40)
[2021-07-02 09:28] VITALS: BP 133/82
[2021-07-02] MEDS: Polyethylene Glycol 3350 17 GM Packet PO SCH (09:59)
[2021-07-02] MEDS ORDERED: Gabapentin 300 MG CAP PO SCH (10:00)
[2021-07-02] MEDS ORDERED: Iopamidol 370 76% 100 ML VIAL ONE (10:56)
[2021-07-02] MEDS ORDERED: Hydrocortisone Sod Succ/PF 250 mg/2 ml Vial SLOW IVP SCH (12:00)
[2021-07-02] MEDS ORDERED: Midazolam HCl 2 mg/2 ml Vial ONE (12:34)
[2021-07-02] MEDS ORDERED: Fentanyl 100 MCG/2 ML VIAL ONE (12:35)
[2021-07-02] MEDS: diphenhydrAMINE 50 MG/ML VIAL IVP SCH ×3 (12:51→23:55)
[2021-07-02] MEDS: Hydrocortisone Sod Succ/PF 100 mg/2 ml Vial IVP SCH ×3 (12:51→23:55)
[2021-07-02] MEDS: Magnesium 2 GM/50 ML 2 GM in Premix Bag 1 BAG IVPB SCH ×3 (14:45→23:56)
[2021-07-02] MEDS ORDERED: Gabapentin 100 MG CAP PO SCH (21:00)
[2021-07-02] MEDS: diphenhydrAMINE 50 MG CAP PO SCH (21:38)
[2021-07-02] MEDS: Gabapentin 100 MG CAP PO SCH (21:38)
[2021-07-03 04:07] LABS: Anion Gap 13 mmol/L (10-20); BUN (Urea Nitrogen) 20 mg/dL (8.4-25.7); Calc. Creatinine Clearance 233 mL/min (70-130); Calcium 9.5 mg/dL (7.8-10.44); Carbon Dioxide 23 mmol/L (22-29); Chloride 101 mmol/L (98-107); Glucose 263 mg/dL (70-105); Potassium 4.6 mmol/L (3.5-5.1); Sodium 132 mmol/L (136-145)
[2021-07-03] MEDS: HYDROcodone/Acetaminophen 5/325 mg Tablet PO SCH ×2 (06:36→11:14)
[2021-07-03] MEDS: diphenhydrAMINE 50 MG/ML VIAL IVP SCH (06:43)
[2021-07-03] MEDS: Magnesium 2 GM/50 ML 2 GM in Premix Bag 1 BAG IVPB SCH (06:44)
[2021-07-03] MEDS: Hydrocortisone Sod Succ/PF 100 mg/2 ml Vial IVP SCH (06:44)
[2021-07-03] MEDS: HumaLOG 300 UNITS/3 ML VIAL SC PRN (06:45)
[2021-07-03] MEDS: Acetaminophen 500 MG TAB PO SCH ×2 (06:45→14:06)
[2021-07-03] MEDS: Hydrochlorothiazide 25 MG TAB PO SCH (09:06)
[2021-07-03] MEDS: NIFEdipine XL 60 MG TAB PO SCH (09:06)
[2021-07-03] MEDS: Lisinopril 20 MG TAB PO SCH (09:06)
[2021-07-03] MEDS: Polyethylene Glycol 3350 17 GM Packet PO SCH (09:06)
[2021-07-03] MEDS: Gabapentin 100 MG CAP PO SCH (09:06)
[2021-07-03] MEDS: metFORMIN 500 MG TAB PO SCH (09:07)
[2021-07-03] MEDS: HumuLIN 70/30 (300 UNITS/3 ML VIAL) SC SCH (09:08)
[2021-07-03 11:25] VITALS: TEMP 98.3
[2021-07-03] MEDS: Morphine 4 MG/ML VIAL SLOW IVP PRN (14:42)
== END 2021-07-03 15:05 | disposition home or self-care (01) | DRG 64 ==
LOC: ERS 23:14 → NEURO 06-25 01:36 → OBSVTOIN 06-25 16:21 → CCU 06-25 18:47 → 2NO 06-28 15:24 → CCU 07-01 18:41 → IMCU/EMU 07-02 12:14
PROVIDERS: ADMIT Emergency Medicine; ATTEND Emergency Medicine
PROC: B31R1ZZ Fluoroscopy of Intracranial Arteries using Low Osmolar Contrast (ICD-10-PCS; principal; 2021-06-25)
DX: I63.9 Cerebral infarction, unspecified (principal); I61.9 Nontraumatic intracerebral hemorrhage, unspecified; Z68.42 Body mass index [BMI] 45.0-49.9, adult; E87.1 Hypo-osmolality and hyponatremia; I16.1 Hypertensive emergency; I48.19 Other persistent atrial fibrillation; I10 Essential (primary) hypertension; E11.9 Type 2 diabetes mellitus without complications; G47.33 Obstructive sleep apnea (adult) (pediatric); D72.829 Elevated white blood cell count, unspecified; I48.0 Paroxysmal atrial fibrillation; E78.5 Hyperlipidemia, unspecified; R00.1 Bradycardia, unspecified; E66.01 Morbid (severe) obesity due to excess calories; Z79.4 Long term (current) use of insulin; Z98.890 Other specified postprocedural states
CPT/HCPCS: 36217; 36228; 36415; 36416; 70450; 70496; 70498; 80048; 80053; 83735; 83930; 83935; 84100; 84145; 84300; 85025; 93005; 93010; 93306; 94660; 96365; 96366; 96375; 96376; G0378; J0282; J0360; J1170; J1200; J1630; J1720; J1815; J2250; J2270; J2405; J2550; J2765; J3010; J3475; J7050; J7070; J7120; Q0163; Q9967

== ENCOUNTER 2023-02-11 14:23 | Outpatient (CLI) | payer BC | END 2023-02-11 14:24 | disposition home or self-care (01) | LOC: EEG 14:23 | PROVIDERS: ATTEND Psychiatry & Neurology Neurology | DX: I63.9 Cerebral infarction, unspecified (principal) | CPT/HCPCS: 95816; 95957 ==

== ENCOUNTER 2023-02-28 09:59 | Day surgery (SDC) | payer BC ==
[2023-02-24 15:09] VITALS: BMI 45.3
[2023-02-28] MEDS ORDERED: Lidocaine 1% w/Epinephrine 1:100K 20 ML VIAL ONE (10:11)
== END 2023-02-28 11:14 | disposition home or self-care (01) ==
LOC: SDC 09:59
PROVIDERS: ATTEND Internal Medicine Cardiovascular Disease
DX: I48.0 Paroxysmal atrial fibrillation (principal); E11.9 Type 2 diabetes mellitus without complications; E78.5 Hyperlipidemia, unspecified; G47.30 Sleep apnea, unspecified; E66.01 Morbid (severe) obesity due to excess calories; Z68.42 Body mass index [BMI] 45.0-49.9, adult; Z79.899 Other long term (current) drug therapy; Z79.4 Long term (current) use of insulin; Z79.84 Long term (current) use of oral hypoglycemic drugs; Z86.73 Personal history of transient ischemic attack (TIA), and cerebral infarction without residual deficits
CPT/HCPCS: 33285; C1764

== ENCOUNTER 2023-11-25 06:01 | Day surgery (SDC) | payer OTHER ==
[2023-11-23 14:28] VITALS: BMI 45.0
[2023-11-23 14:54] LABS: Hematocrit 49.3 % (38.8-50.0); Hemoglobin 17.2 g/dL (13.5-17.5); Mean Corpuscular HGB CONC 34.9 g/dL (32.0-36.0); Mean Corpuscular Hemoglobin 30.4 pg (27.0-33.0); Mean Corpuscular Volume 87.3 fl (81.2-95.1); Mean Platelet Volume 10.3 fl (7.4-10.4); Platelet Count 260 10x3/uL (150-450); RBC Distribution Width 14.4 % (11.5-14.5); Red Blood Cell (RBC) Count 5.65 10x6/uL (4.32-5.72); White Blood Cell (WBC) Count 9.9 10x3/uL (3.5-10.5)
[2023-11-23 15:11] LABS: PTT 26.6 sec (22.0-33.0); Prothrombin Time 10.9 sec (9.5-12.1)
[2023-11-23 15:22] LABS: Anion Gap 12 mmol/L (10-20); BUN (Urea Nitrogen) 17 mg/dL (8.4-25.7); Calc. Creatinine Clearance 191 mL/min (70-130); Calcium 9.2 mg/dL (7.8-10.44); Carbon Dioxide 22 mmol/L (22-29); Chloride 103 mmol/L (98-107); Estimated GFR 85; Glucose 313 mg/dL (70-105); Potassium 4.2 mmol/L (3.5-5.1); Sodium 133 mmol/L (136-145)
[2023-11-25] MEDS ORDERED: PHENYLEPHRINE-NS 100 MCG/ML 10 ML SYRINGE ONE (07:47)
[2023-11-25] MEDS ORDERED: Propofol 500 MG/50 ML VIAL ONE (08:20)
[2023-11-25] MEDS ORDERED: Midazolam HCl 2 mg/2 ml Vial ONE (08:21)
== END 2023-11-25 09:27 | disposition home or self-care (01) ==
LOC: SDC 06:01
PROVIDERS: ATTEND Internal Medicine Cardiovascular Disease
PROC: B246ZZ4 Ultrasonography of Right and Left Heart, Transesophageal (ICD-10-PCS; principal; 2023-11-25)
DX: I48.0 Paroxysmal atrial fibrillation (principal); Z79.01 Long term (current) use of anticoagulants
CPT/HCPCS: 80048; 85027; 85610; 85730; 93312; J2250; J2704

== ENCOUNTER 2023-12-22 09:32 | Inpatient (IN) | payer OTHER ==
[2023-12-22] MEDS ORDERED: Morphine 4 MG/ML VIAL ONE ×2 (09:54→12:55)
[2023-12-22] MEDS ORDERED: dilTIAZem 25 MG/5 ML VIAL ONE ×2 (09:55→13:17)
[2023-12-22 09:59] LABS: #Basophils 0.04 10x3/uL (0.0-0.2); %Basophils 0.5 % (0.0-1.0); %Eosinophils 1.9 % (0.0-10.0); %Lymphocytes 18.2 % (21.0-51.0); %Monocytes 10.6 % (0.0-10.0); %Neutrophils 67.6 % (42.0-75.0); Hematocrit 48.4 % (42.0-52.0); Hemoglobin 16.7 g/dL (14.0-18.0); Mean Corpuscular HGB CONC 34.5 g/dL (32.0-36.0); Mean Corpuscular Hemoglobin 29.7 pg (27.0-31.0); Mean Corpuscular Volume 86.1 fL (78.0-98.0); Mean Platelet Volume 10.7 fL (7.4-10.4); Platelet Count 244 10x3/uL (130-400); RBC Distribution Width 13.6 % (11.5-14.5); Red Blood Cell (RBC) Count 5.62 mill/uL (4.70-6.10)
[2023-12-22 10:11] LABS: ALT (SGPT) 8 U/L (8-55); AST (SGOT) 13 U/L (5-34); Alkaline Phosphatase 77 U/L (40-110); Anion Gap 15 mmol/L (10-20); BUN (Urea Nitrogen) 14 mg/dL (8.4-25.7); Bilirubin, Total 0.5 mg/dL (0.2-1.2); Calc. Creatinine Clearance 0 mL/min (70-130); Calcium 9.9 mg/dL (7.8-10.44); Carbon Dioxide 22 mmol/L (22-29); Chloride 105 mmol/L (98-107); Estimated GFR 101; Globulin 3.5 g/dL (2.4-3.5); Glucose 201 mg/dL (70-105); Potassium 3.9 mmol/L (3.5-5.1); Protein, Total 7.5 g/dL (6.0-8.3); Sodium 138 mmol/L (136-145)
[2023-12-22] MEDS ORDERED: dilTIAZem 125 MG/25 ML SDV ONE (10:26)
[2023-12-22] MEDS ORDERED: Iopamidol-370 76% 500 ML MDV (1 ML CHARGE) ONE (11:31)
[2023-12-22 11:35] LABS: Troponin I Less than 0.010 ng/mL (< 0.028)
[2023-12-22] MEDS ORDERED: Aspirin Chewable 81 MG TAB ONE (12:55)
[2023-12-22 13:15] VITALS: BMI 44.8
[2023-12-22] MEDS ORDERED: Ondansetron PF 4 MG/2 ML Vial IVP PRN (13:43)
[2023-12-22] MEDS ORDERED: Guaifenesin DM 100-10/5 ML UDCUP PO PRN (13:43)
[2023-12-22] MEDS ORDERED: Ondansetron ODT 4 MG TAB PO PRN (13:43)
[2023-12-22] MEDS ORDERED: Acetaminophen 325 MG TAB PO PRN (13:43)
[2023-12-22] MEDS ORDERED: Calcium Carbonate 500 MG ChewTAB PO PRN (13:43)
[2023-12-22] MEDS ORDERED: Glucagon 1 MG/ML KIT IM PRN (13:48)
[2023-12-22] MEDS ORDERED: Dextrose 50% Abboject 50 ML SYRINGE SLOW IVP PRN (13:48)
[2023-12-22] MEDS ORDERED: Dextrose 5% in Water 1,000 ML IV PRN (13:48)
[2023-12-22 14:05] LABS: Troponin I 0.011 ng/mL (< 0.028)
[2023-12-22 14:29] LABS: Cardiac Risk 4.6 (Less than 4.5); Cholesterol 161 mg/dl (< 200 Desired); HDL Cholesterol 35 mg/dL (>60 Neg Risk); LDL Cholesterol, Calculated 107 mg/dL; Magnesium 1.5 mg/dL (1.6-2.6); Phosphorus 2.7 mg/dL (2.3-4.7); Triglycerides 94 mg/dL (Less than 150)
[2023-12-22] MEDS ORDERED: Morphine 4 MG/ML VIAL SLOW IVP PRN (16:01)
[2023-12-22] MEDS: Ketorolac Tromethamine 30 MG (1 mL) VIAL IVP PRN (16:15)
[2023-12-22 17:15] LABS: Troponin I Less than 0.010 ng/mL (< 0.028)
[2023-12-22] MEDS: Colestipol 1 GM TAB PO SCH (17:48)
[2023-12-22] MEDS: Apixaban 5 MG TAB PO SCH (21:39)
[2023-12-22] MEDS: metFORMIN 500 MG TAB PO SCH (21:39)
[2023-12-22] MEDS: Lithium Carbonate 300 MG ER.TAB PO SCH (21:40)
[2023-12-22] MEDS: OXcarbazepine 300 MG TAB PO SCH (21:40)
[2023-12-22] MEDS: diphenhydrAMINE 25 MG CAP PO SCH (21:40)
[2023-12-22] MEDS: Acetaminophen 500 MG TAB PO SCH (21:41)
[2023-12-22] MEDS: dilTIAZem 125 MG in Sodium Chloride 0.9% 100 ML IVPB SCH (21:51)
[2023-12-22] MEDS: Magnesium 2 GM/50 ML(in water) 2 GM in Premix 1 BAG IVPB SCH (23:00)
[2023-12-23 03:38] LABS: #Basophils 0.05 10x3/uL (0.0-0.2); %Basophils 0.9 % (0.0-1.0); %Eosinophils 3.4 % (0.0-10.0); %Lymphocytes 27.5 % (21.0-51.0); %Monocytes 12.9 % (0.0-10.0); %Neutrophils 54.8 % (42.0-75.0); Hematocrit 44.3 % (42.0-52.0); Hemoglobin 14.6 g/dL (14.0-18.0); Mean Corpuscular Hemoglobin 30.9 pg (27.0-31.0); Mean Corpuscular Volume 93.7 fL (78.0-98.0); Mean Platelet Volume 11.1 fL (7.4-10.4); Platelet Count 162 10x3/uL (130-400); RBC Distribution Width 13.7 % (11.5-14.5); Red Blood Cell (RBC) Count 4.73 mill/uL (4.70-6.10)
[2023-12-23] MEDS: NIFEdipine XL 60 MG ER.TAB PO SCH ×2 (03:49→11:21)
[2023-12-23 03:57] LABS: ALT (SGPT) 12 U/L (8-55); AST (SGOT) 15 U/L (5-34); Albumin 3.2 g/dL (3.5-5.0); Alkaline Phosphatase 59 U/L (40-110); Anion Gap 14 mmol/L (10-20); BUN (Urea Nitrogen) 18 mg/dL (8.4-25.7); Bilirubin, Total 0.3 mg/dL (0.2-1.2); Calc. Creatinine Clearance 243 mL/min (70-130); Calcium 9.1 mg/dL (7.8-10.44); Carbon Dioxide 16 mmol/L (22-29); Chloride 108 mmol/L (98-107); Estimated GFR 104; Globulin 2.9 g/dL (2.4-3.5); Glucose 160 mg/dL (70-105); Potassium 4.5 mmol/L (3.5-5.1); Protein, Total 6.1 g/dL (6.0-8.3); Sodium 133 mmol/L (136-145)
[2023-12-23] MEDS ORDERED: CARIPRAZINE HCL 1.5 MG PO SCH (09:00)
[2023-12-23] MEDS: Atorvastatin Calcium 40 MG TAB PO SCH (09:08)
[2023-12-23] MEDS: Pantoprazole 40 MG VIAL IVP SCH (09:08)
[2023-12-23] MEDS: cefTRIAXone\\ROCEPHIN 1 GM in Sodium Chloride 0.9% 100 ML IVPB SCH (09:08)
[2023-12-23] MEDS: Azithromycin 1,000 MG in Sodium Chloride 0.9% 500 ML IVPB SCH (09:48)
[2023-12-23] MEDS: HumaLOG 300 UNITS/3 ML VIAL SC PRN ×2 (11:20→20:43)
[2023-12-24 04:28] LABS: #Basophils Less than 0.03 10x3/uL (0.0-0.2); %Basophils 0.3 % (0.0-1.0); %Eosinophils 3.3 % (0.0-10.0); %Lymphocytes 17.4 % (21.0-51.0); %Monocytes 8.7 % (0.0-10.0); %Neutrophils 69.8 % (42.0-75.0); Hematocrit 43.2 % (42.0-52.0); Hemoglobin 14.6 g/dL (14.0-18.0); Mean Corpuscular HGB CONC 33.8 g/dL (32.0-36.0); Mean Corpuscular Hemoglobin 30.2 pg (27.0-31.0); Mean Corpuscular Volume 89.4 fL (78.0-98.0); Mean Platelet Volume 10.3 fL (7.4-10.4); Platelet Count 225 10x3/uL (130-400); RBC Distribution Width 13.2 % (11.5-14.5); Red Blood Cell (RBC) Count 4.83 mill/uL (4.70-6.10)
[2023-12-24 04:54] LABS: ALT (SGPT) 10 U/L (8-55); AST (SGOT) 8 U/L (5-34); Albumin 3.2 g/dL (3.5-5.0); Alkaline Phosphatase 66 U/L (40-110); Anion Gap 13 mmol/L (10-20); BUN (Urea Nitrogen) 26 mg/dL (8.4-25.7); Bilirubin, Total 0.4 mg/dL (0.2-1.2); Calc. Creatinine Clearance 214 mL/min (70-130); Calcium 9.3 mg/dL (7.8-10.44); Carbon Dioxide 19 mmol/L (22-29); Chloride 107 mmol/L (98-107); Estimated GFR 98; Globulin 2.9 g/dL (2.4-3.5); Glucose 188 mg/dL (70-105); Potassium 4.2 mmol/L (3.5-5.1); Protein, Total 6.1 g/dL (6.0-8.3); Sodium 135 mmol/L (136-145)
[2023-12-24] MEDS: dilTIAZem CD 180 MG CAP PO SCH (09:45)
[2023-12-24 12:39] VITALS: BP 145/85; TEMP 97.8
[2023-12-24] MEDS ORDERED: Amoxicillin/Potassium Clav 875 MG TAB PO SCH (21:00)
== END 2023-12-24 16:12 | disposition home or self-care (01) | DRG 308 ==
LOC: ERS 09:32 → ERHOLD 12:58 → IMCU/EMU 14:57 → 2SE 12-23 18:34
PROVIDERS: ADMIT Family Medicine; ATTEND Family Medicine
DX: I48.92 Unspecified atrial flutter (principal); J18.9 Pneumonia, unspecified organism; Z68.1 Body mass index [BMI] 19.9 or less, adult; I48.0 Paroxysmal atrial fibrillation; E11.9 Type 2 diabetes mellitus without complications; E78.5 Hyperlipidemia, unspecified; I10 Essential (primary) hypertension; E66.01 Morbid (severe) obesity due to excess calories; M81.0 Age-related osteoporosis without current pathological fracture; M85.80 Other specified disorders of bone density and structure, unspecified site; Z86.711 Personal history of pulmonary embolism; Z79.899 Other long term (current) drug therapy; Z86.73 Personal history of transient ischemic attack (TIA), and cerebral infarction without residual deficits; Z90.49 Acquired absence of other specified parts of digestive tract
CPT/HCPCS: 36415; 36416; 71045; 71275; 80053; 80061; 81241; 83036; 83735; 84100; 84145; 84443; 84484; 85025; 93005; 93306; 94660; 96365; 96366; 96375; 96376; C9113; J0456; J0696; J1815; J1885; J2270; J3475; J3490; J7030

== ENCOUNTER 2023-12-30 02:05 | Emergency (ER) | payer OTHER ==
[2023-12-30] MEDS ORDERED: Ketorolac Tromethamine 30 MG (1 mL) VIAL ONE (03:30)
[2023-12-30 03:44] LABS: #Basophils 0.06 10x3/uL (0.0-0.2); %Basophils 0.7 % (0.0-1.0); %Eosinophils 2.5 % (0.0-10.0); %Monocytes 9.7 % (0.0-10.0); %Neutrophils 60.2 % (42.0-75.0); Hematocrit 40.7 % (42.0-52.0); Hemoglobin 13.9 g/dL (14.0-18.0); Mean Corpuscular HGB CONC 34.2 g/dL (32.0-36.0); Mean Corpuscular Hemoglobin 30.2 pg (27.0-31.0); Mean Corpuscular Volume 88.3 fL (78.0-98.0); Mean Platelet Volume 10.2 fL (7.4-10.4); Platelet Count 305 10x3/uL (130-400); RBC Distribution Width 13.8 % (11.5-14.5); Red Blood Cell (RBC) Count 4.61 mill/uL (4.70-6.10)
[2023-12-30 04:01] LABS: ALT (SGPT) 14 U/L (8-55); AST (SGOT) 13 U/L (5-34); Albumin 3.3 g/dL (3.5-5.0); Alkaline Phosphatase 68 U/L (40-110); Anion Gap 14 mmol/L (10-20); BUN (Urea Nitrogen) 27 mg/dL (8.4-25.7); Bilirubin, Total 0.2 mg/dL (0.2-1.2); Calc. Creatinine Clearance 0 mL/min (70-130); Calcium 9.2 mg/dL (7.8-10.44); Carbon Dioxide 21 mmol/L (22-29); Chloride 106 mmol/L (98-107); Estimated GFR 77; Globulin 3.1 g/dL (2.4-3.5); Glucose 249 mg/dL (70-105); Lipase 20 U/L (8-78); Magnesium 1.8 mg/dL (1.6-2.6); Potassium 3.7 mmol/L (3.5-5.1); Protein, Total 6.4 g/dL (6.0-8.3); Sodium 137 mmol/L (136-145)
[2023-12-30 04:07] LABS: Troponin I Less than 0.010 ng/mL (< 0.028)
[2023-12-30 04:16] LABS: INR-International Normal Ratio 1.1; Prothrombin Time 14.7 sec (12.0-14.7)
[2023-12-30] MEDS ORDERED: Ondansetron PF 4 MG/2 ML Vial ONE (06:06)
[2023-12-30] MEDS ORDERED: LevoFLOXacin 750 mg/D5W 150 ml Premix Bag ONE (06:07)
[2023-12-30] MEDS ORDERED: Iopamidol 370 76% 100 ML VIAL ONE (12:10)
== END 2023-12-30 07:56 | disposition home or self-care (01) ==
LOC: ERS 02:05
DX: J18.9 Pneumonia, unspecified organism (principal); R60.9 Edema, unspecified; I48.91 Unspecified atrial fibrillation; E11.9 Type 2 diabetes mellitus without complications; I10 Essential (primary) hypertension
CPT/HCPCS: 71045; 71275; 80053; 83605; 83690; 83735; 83880; 84484; 85025; 85610; 85730; 87040; 93005; 96374; 96375; J1885; J1956; J2405; Q9967

== ENCOUNTER 2024-05-08 08:12 | Inpatient (IN) | payer OTHER ==
[2024-05-08 08:49] LABS: #Basophils 0.05 10x3/uL (0.0-0.2); %Basophils 0.6 % (0.0-1.0); %Eosinophils 1.5 % (0.0-10.0); %Lymphocytes 9.6 % (21.0-51.0); %Monocytes 8.1 % (0.0-10.0); %Neutrophils 79.4 % (42.0-75.0); Hematocrit 52.7 % (42.0-52.0); Hemoglobin 17.7 g/dL (14.0-18.0); Mean Corpuscular HGB CONC 33.6 g/dL (32.0-36.0); Mean Corpuscular Hemoglobin 30.9 pg (27.0-31.0); Mean Corpuscular Volume 92.1 fL (78.0-98.0); Mean Platelet Volume 10.3 fL (7.4-10.4); Platelet Count 183 10x3/uL (130-400); RBC Distribution Width 15.1 % (11.5-14.5); Red Blood Cell (RBC) Count 5.72 mill/uL (4.70-6.10)
[2024-05-08] MEDS ORDERED: hydrALAZINE 20 MG/ML VIAL ONE ×2 (09:05→10:24)
[2024-05-08] MEDS ORDERED: Nitroglycerin 2% Ointment 1 INCH/1 GM Packet ONE (09:05)
[2024-05-08 09:07] LABS: Troponin I 0.017 ng/mL (< 0.028)
[2024-05-08 09:08] LABS: ALT (SGPT) 31 U/L (8-55); AST (SGOT) 25 U/L (5-34); Albumin 4.2 g/dL (3.5-5.0); Alkaline Phosphatase 67 U/L (40-110); Anion Gap 13 mmol/L (10-20); BUN (Urea Nitrogen) 15 mg/dL (8.4-25.7); Bilirubin, Total 0.7 mg/dL (0.2-1.2); Calc. Creatinine Clearance 0 mL/min (70-130); Calcium 9.3 mg/dL (7.8-10.44); Carbon Dioxide 20 mmol/L (22-29); Chloride 106 mmol/L (98-107); Estimated GFR 101; Globulin 2.9 g/dL (2.4-3.5); Glucose 213 mg/dL (70-105); Potassium 4.2 mmol/L (3.5-5.1); Protein, Total 7.1 g/dL (6.0-8.3); Sodium 135 mmol/L (136-145)
[2024-05-08 09:19] LABS: Bacteria/HPF None Seen HPF (None Seen); Bilirubin Negative (Negative); Blood, Urine Negative (Negative); CAUTI Indications for Culture Dysuria,urgency,freq; Clarity Clear (Clear); Glucose, Urine (Dipstick) Normal (Negative); Ketone, Urine Trace mg/dL (Negative); Leukocyte Negative Leu/uL (Negative); Nitrite Negative (Negative); Protein, Urine (Dipstick) 100 mg/dL (Neg-Trace); RBC/HPF 0-3 HPF (0-3); Squamous Epithelial None Seen HPF (0-3); Urobilinogen Normal mg/dL (Less than 2); WBC/HPF 0-3 HPF (0-3)
[2024-05-08 09:27] LABS: Urine Culture Reflex No No
[2024-05-08] MEDS ORDERED: Acetaminophen 325 MG TAB ONE (10:21)
[2024-05-08] MEDS ORDERED: Lorazepam 2 MG/ML VIAL ONE ×2 (10:24→10:37)
[2024-05-08] MEDS ORDERED: Diltiazem HCl/D5W 0 ML ONE (10:38)
[2024-05-08] MEDS ORDERED: niCARdipine 25 MG/10 ML SDV ONE (10:39)
[2024-05-08 11:40] LABS: Lactic Acid 2.51 mmol/L (0.5-2.2)
[2024-05-08] MEDS ORDERED: Dextrose 5% in Water 1,000 ML IV PRN (11:43)
[2024-05-08] MEDS ORDERED: Glucagon 1 MG/ML KIT IM PRN (11:43)
[2024-05-08] MEDS ORDERED: Insulin Lispro 100 UNIT/ML 10 ML VIAL SC PRN (11:43)
[2024-05-08] MEDS ORDERED: Dextrose 50% Abboject 50 ML SYRINGE SLOW IVP PRN (11:43)
[2024-05-08] MEDS ORDERED: hydrALAZINE 20 MG/ML VIAL SLOW IVP PRN (11:53)
[2024-05-08] MEDS ORDERED: Labetalol HCl 100 MG/20 ML VIAL SLOW IVP PRN (11:53)
[2024-05-08 12:37] LABS: Troponin I 0.013 ng/mL (< 0.028)
[2024-05-08] MEDS ORDERED: levETIRAcetam 500 MG (5 mL) VIAL ONE (12:45)
[2024-05-08] MEDS: levETIRAcetam 500 MG (5 mL) VIAL SLOW IVP SCH ×2 (13:00→20:16)
[2024-05-08 14:53] LABS: Troponin I 0.019 ng/mL (< 0.028)
[2024-05-08] MEDS: Acetaminophen 325 MG TAB PO PRN (15:27)
[2024-05-08] MEDS: Colestipol 1 GM TAB PO SCH (15:56)
[2024-05-08] MEDS: Lithium Carbonate 300 MG ER.TAB PO SCH (17:15)
[2024-05-08] MEDS ORDERED: niCARdipine 25 MG in Sodium Chloride 0.9% 250 ML 250 ML IVPB SCH (18:00)
[2024-05-08] MEDS: Metoprolol Tartrate 5 MG (5 mL) VIAL IVP SCH (19:39)
[2024-05-08] MEDS ORDERED: Metoprolol Tartrate 5 MG (5 mL) VIAL IVP PRN (19:41)
[2024-05-08 19:49] LABS: Anion Gap 16 mmol/L (10-20); BUN (Urea Nitrogen) 10 mg/dL (8.4-25.7); CK (CPK) 96 U/L (30-200); Calc. Creatinine Clearance 309 mL/min (70-130); Calcium 9.2 mg/dL (7.8-10.44); Carbon Dioxide 18 mmol/L (22-29); Chloride 104 mmol/L (98-107); Estimated GFR 109; Glucose 183 mg/dL (70-105); Magnesium 1.7 mg/dL (1.6-2.6); Potassium 3.9 mmol/L (3.5-5.1); Sodium 134 mmol/L (136-145)
[2024-05-08] MEDS: Lactated Ringer's 1,000 ML IV SCH (20:07)
[2024-05-08] MEDS: Acetaminophen 500 MG TAB PO SCH (20:19)
[2024-05-08] MEDS: OXcarbazepine 300 MG TAB PO SCH (20:19)
[2024-05-08] MEDS: Famotidine 20 MG TAB PO SCH (20:19)
[2024-05-08] MEDS: Apixaban 5 MG TAB PO SCH (20:19)
[2024-05-08] MEDS ORDERED: diphenhydrAMINE 50 MG CAP PO SCH (21:00)
[2024-05-08] MEDS: diphenhydrAMINE 25 MG CAP PO SCH (22:09)
[2024-05-09 05:22] LABS: #Basophils 0.04 10x3/uL (0.0-0.2); %Basophils 0.4 % (0.0-1.0); %Eosinophils 1.7 % (0.0-10.0); %Lymphocytes 14.8 % (21.0-51.0); %Monocytes 11.1 % (0.0-10.0); %Neutrophils 71.6 % (42.0-75.0); Hematocrit 49.2 % (42.0-52.0); Hemoglobin 16.5 g/dL (14.0-18.0); Mean Corpuscular HGB CONC 33.5 g/dL (32.0-36.0); Mean Corpuscular Hemoglobin 30.9 pg (27.0-31.0); Mean Corpuscular Volume 92.1 fL (78.0-98.0); Mean Platelet Volume 10.3 fL (7.4-10.4); Platelet Count 173 10x3/uL (130-400); RBC Distribution Width 15.3 % (11.5-14.5); Red Blood Cell (RBC) Count 5.34 mill/uL (4.70-6.10)
[2024-05-09 05:46] LABS: ALT (SGPT) 24 U/L (8-55); AST (SGOT) 16 U/L (5-34); Albumin 3.6 g/dL (3.5-5.0); Alkaline Phosphatase 56 U/L (40-110); Anion Gap 13 mmol/L (10-20); BUN (Urea Nitrogen) 9 mg/dL (8.4-25.7); Bilirubin, Total 1.5 mg/dL (0.2-1.2); Calc. Creatinine Clearance 296 mL/min (70-130); Calcium 8.8 mg/dL (7.8-10.44); Carbon Dioxide 22 mmol/L (22-29); Cardiac Risk 3.3 (Less than 4.5); Chloride 107 mmol/L (98-107); Cholesterol 96 mg/dl (< 200 Desired); Estimated GFR 108; Globulin 2.6 g/dL (2.4-3.5); Glucose 151 mg/dL (70-105); HDL Cholesterol 29 mg/dL (>60 Neg Risk); LDL Cholesterol, Calculated 51 mg/dL; Magnesium 1.8 mg/dL (1.6-2.6); Protein, Total 6.2 g/dL (6.0-8.3); Sodium 138 mmol/L (136-145); Triglycerides 80 mg/dL (Less than 150)
[2024-05-09] MEDS ORDERED: Furosemide 40 MG TAB PO PRN (08:23)
[2024-05-09] MEDS: Gabapentin 300 MG CAP PO SCH (08:34)
[2024-05-09] MEDS: Lisinopril 20 MG TAB PO SCH (08:34)
[2024-05-09] MEDS: Atorvastatin Calcium 40 MG TAB PO SCH (08:34)
[2024-05-09] MEDS: Metoprolol Tartrate 50 MG TAB PO SCH (08:34)
[2024-05-09] MEDS: FLU (Fluarix Triv) TS24-25(6MOS UP)/PF 45 MCG/0.5 ML Syringe IM ONE (08:35)
[2024-05-09] MEDS: Cariprazine Hcl [Vraylar] 1.5 MG Capsule PO SCH (08:36)
[2024-05-09] MEDS ORDERED: NALTREXONE HCL 4.5 MG PO SCH (09:00)
[2024-05-09] MEDS: Ondansetron PF 4 MG/2 ML Vial IVP PRN (10:50)
[2024-05-09] MEDS: Magnesium 2 GM/50 ML(in water) 2 GM in Premix 1 BAG IVPB SCH (10:56)
[2024-05-09] MEDS: Insulin Lispro 100 UNIT/ML 10 ML VIAL SC PRN (11:03)
[2024-05-09] MEDS: Acetaminophen 500 MG TAB PO PRN (11:22)
[2024-05-09] MEDS: Ondansetron ODT 4 MG TAB PO PRN (11:22)
[2024-05-09 20:48] VITALS: BMI 47.2
[2024-05-10 04:13] LABS: #Basophils 0.05 10x3/uL (0.0-0.2); %Basophils 0.6 % (0.0-1.0); %Eosinophils 2.9 % (0.0-10.0); %Lymphocytes 19.9 % (21.0-51.0); %Monocytes 10.6 % (0.0-10.0); %Neutrophils 65.3 % (42.0-75.0); Hematocrit 50.7 % (42.0-52.0); Hemoglobin 16.5 g/dL (14.0-18.0); Mean Corpuscular HGB CONC 32.5 g/dL (32.0-36.0); Mean Corpuscular Volume 95.1 fL (78.0-98.0); Mean Platelet Volume 10.4 fL (7.4-10.4); Platelet Count 169 10x3/uL (130-400); RBC Distribution Width 15.1 % (11.5-14.5); Red Blood Cell (RBC) Count 5.33 mill/uL (4.70-6.10)
[2024-05-10 04:56] LABS: ALT (SGPT) 22 U/L (8-55); AST (SGOT) 14 U/L (5-34); Albumin 3.6 g/dL (3.5-5.0); Alkaline Phosphatase 52 U/L (40-110); Anion Gap 13 mmol/L (10-20); BUN (Urea Nitrogen) 11 mg/dL (8.4-25.7); Bilirubin, Total 0.8 mg/dL (0.2-1.2); Calc. Creatinine Clearance 251 mL/min (70-130); Calcium 9.1 mg/dL (7.8-10.44); Carbon Dioxide 23 mmol/L (22-29); Chloride 107 mmol/L (98-107); Estimated GFR 103; Globulin 2.7 g/dL (2.4-3.5); Glucose 173 mg/dL (70-105); Potassium 3.7 mmol/L (3.5-5.1); Protein, Total 6.3 g/dL (6.0-8.3); Sodium 139 mmol/L (136-145)
[2024-05-10] MEDS: Aspirin 81 mg Enteric Coated Tablet PO SCH (10:12)
[2024-05-10] MEDS: Metoprolol Tartrate 50 MG TAB PO SCH (10:13)
[2024-05-10 14:53] VITALS: BP 163/87; TEMP 98.5
[2024-05-10] MEDS ORDERED: MAGIC MOUTHWASH 10 ML UDCUP SSW SCH (15:00)
[2024-05-10] MEDS: MAGIC MOUTHWASH 10 ML, Compounding Fee 1 SSW SCH (16:39)
[2024-05-10] MEDS ORDERED: Metoprolol Tartrate 100 MG TAB PO SCH (21:00)
[2024-05-10] MEDS ORDERED: levETIRAcetam 500 MG TAB PO SCH (21:00)
[2024-05-22] MEDS ORDERED: TESTOSTERONE ENANTHATE SC SCH (09:00)
[2024-05-22] MEDS ORDERED: AUTO INJCT SC SCH (09:00)
== END 2024-05-10 19:13 | disposition home or self-care (01) | DRG 100 ==
LOC: ERS 08:12 → ERHOLD 10:00 → CCU 14:50 → 2SE 05-09 20:56
PROVIDERS: ADMIT Family Medicine; ATTEND Family Medicine
PROC: 4A00X4Z Measurement of Central Nervous Electrical Activity, External Approach (ICD-10-PCS; principal; 2024-05-08)
DX: R56.9 Unspecified convulsions (principal); I67.83 Posterior reversible encephalopathy syndrome; J96.01 Acute respiratory failure with hypoxia; I16.1 Hypertensive emergency; I16.0 Hypertensive urgency; F31.9 Bipolar disorder, unspecified; I10 Essential (primary) hypertension; E11.9 Type 2 diabetes mellitus without complications; Z86.711 Personal history of pulmonary embolism; S70.01XA Contusion of right hip, initial encounter; W18.30XA Fall on same level, unspecified, initial encounter; E78.5 Hyperlipidemia, unspecified; I48.91 Unspecified atrial fibrillation; Z90.49 Acquired absence of other specified parts of digestive tract; Z98.890 Other specified postprocedural states; Z79.84 Long term (current) use of oral hypoglycemic drugs; Z79.01 Long term (current) use of anticoagulants; Z79.899 Other long term (current) drug therapy
CPT/HCPCS: 36415; 36416; 70450; 71045; 80053; 80061; 80178; 81001; 82140; 82550; 83605; 83735; 84146; 84484; 85025; 90656; 93005; 93010; 93306; 95816; J0360; J1815; J1953; J2060; J2405; J3475; J7120; Q0162

== ENCOUNTER 2024-07-16 23:30 | Emergency (ER) | payer OTHER ==
[2024-07-17 00:20] LABS: #Basophils 0.05 10x3/uL (0.0-0.2); %Basophils 0.5 % (0.0-1.0); %Eosinophils 2.6 % (0.0-10.0); %Lymphocytes 23.6 % (21.0-51.0); %Monocytes 9.5 % (0.0-10.0); Hematocrit 53.8 % (42.0-52.0); Hemoglobin 18.5 g/dL (14.0-18.0); Mean Corpuscular HGB CONC 34.4 g/dL (32.0-36.0); Mean Corpuscular Hemoglobin 30.5 pg (27.0-31.0); Mean Corpuscular Volume 88.8 fL (78.0-98.0); Mean Platelet Volume 10.2 fL (7.4-10.4); Platelet Count 318 10x3/uL (130-400); Red Blood Cell (RBC) Count 6.06 mill/uL (4.70-6.10)
[2024-07-17] MEDS ORDERED: Morphine 4 MG/ML VIAL ONE (00:24)
[2024-07-17 00:37] LABS: ALT (SGPT) 54 U/L (8-55); AST (SGOT) 22 U/L (5-34); Alkaline Phosphatase 67 U/L (40-110); Anion Gap 15 mmol/L (10-20); BUN (Urea Nitrogen) 23 mg/dL (8.4-25.7); Bilirubin, Total 0.5 mg/dL (0.2-1.2); Calc. Creatinine Clearance 0 mL/min (70-130); Carbon Dioxide 26 mmol/L (22-29); Chloride 103 mmol/L (98-107); Estimated GFR 66; Globulin 3.9 g/dL (2.4-3.5); Glucose 225 mg/dL (70-105); Potassium 4.6 mmol/L (3.5-5.1); Protein, Total 7.9 g/dL (6.0-8.3); Sodium 139 mmol/L (136-145)
[2024-07-17 00:41] LABS: Troponin I Less than 0.010 ng/mL (< 0.028)
[2024-07-17 00:58] LABS: PTT 40.4 sec (22.9-36.1); Prothrombin Time 13.6 sec (12.0-14.7)
[2024-07-17] MEDS ORDERED: Morphine 2 MG/ML VIAL ONE (01:01)
[2024-07-17] MEDS ORDERED: fentaNYL 50 mcg/mL 1 mL Vial ONE (02:49)
== END 2024-07-17 04:20 | disposition home or self-care (01) ==
LOC: ERS 23:30
DX: M25.551 Pain in right hip (principal); E11.9 Type 2 diabetes mellitus without complications; E78.5 Hyperlipidemia, unspecified; I10 Essential (primary) hypertension; Z86.718 Personal history of other venous thrombosis and embolism; E78.00 Pure hypercholesterolemia, unspecified; Z86.711 Personal history of pulmonary embolism; Z79.01 Long term (current) use of anticoagulants; Z79.899 Other long term (current) drug therapy
CPT/HCPCS: 80053; 84484; 85025; 85610; 85730; 93005; 96374; 96375; 96376; J2270; J2272; J3010

== ENCOUNTER 2024-07-20 10:07 | Inpatient (IN) | payer OTHER ==
[2024-07-20] MEDS ORDERED: Sodium Chloride 0.9% 100 ML ONE (10:58)
[2024-07-20] MEDS ORDERED: cefTRIAXone (ROCEPHIN) 1 GM VIAL ONE (10:59)
[2024-07-20] MEDS ORDERED: NOREPINEPHRINE 8 MG/250 ML-D5W 250 ML ONE (11:01)
[2024-07-20 11:02] LABS: #Basophils 0.07 10x3/uL (0.0-0.2); %Basophils 0.4 % (0.0-1.0); %Eosinophils 1.7 % (0.0-10.0); %Lymphocytes 11.3 % (21.0-51.0); %Neutrophils 76.7 % (42.0-75.0); Hematocrit 41.9 % (42.0-52.0); Hemoglobin 14.1 g/dL (14.0-18.0); Mean Corpuscular HGB CONC 33.7 g/dL (32.0-36.0); Mean Corpuscular Volume 89.1 fL (78.0-98.0); Mean Platelet Volume 10.5 fL (7.4-10.4); Platelet Count 284 10x3/uL (130-400); RBC Distribution Width 12.1 % (11.5-14.5)
[2024-07-20 11:16] LABS: Actual Bicarbonate (HCO3v) 21.8 mEq/L (22-28); Base Excess -4.5 mEq/L (-2.0 to +3.0); Calcium, Ionized (venous) 1.13 mmol/L (1.16-1.32); Chloride (VBG) 99 mmol/L (98-106); Hematocrit-VBG 46 % (42.0-52.0); Hemoglobin (Hb) 15.5 g/dL (13.1-17.2); INR-International Normal Ratio 1.2; Potassium (VBG) 5.02 mmol/L (3.70-5.30); Prothrombin Time 14.8 sec (12.0-14.7); Sodium 133 mmol/L (133-146); pH (venous) 7.311 (7.32-7.43)
[2024-07-20 11:35] LABS: ALT (SGPT) 35 U/L (8-55); AST (SGOT) 35 U/L (5-34); Albumin 3.3 g/dL (3.5-5.0); Alkaline Phosphatase 58 U/L (40-110); Anion Gap 15 mmol/L (10-20); BUN (Urea Nitrogen) 47 mg/dL (8.4-25.7); Bilirubin, Total 0.8 mg/dL (0.2-1.2); CK (CPK) 1022 U/L (30-200); Calc. Creatinine Clearance 0 mL/min (70-130); Calcium 9.7 mg/dL (7.8-10.44); Carbon Dioxide 21 mmol/L (22-29); Chloride 100 mmol/L (98-107); Estimated GFR 19; Globulin 3.7 g/dL (2.4-3.5); Glucose 185 mg/dL (70-105); Potassium 5.2 mmol/L (3.5-5.1); Sodium 131 mmol/L (136-145)
[2024-07-20] MEDS ORDERED: Heparin 5,000 UNITS/ML VIAL ONE (11:53)
[2024-07-20] MEDS ORDERED: Heparin 25,000 units/D5W 500 ML ONE (11:54)
[2024-07-20 14:18] LABS: Lactic Acid 1.52 mmol/L (0.5-2.2)
[2024-07-20] MEDS ORDERED: Dextrose 5% in Water 1,000 ML IV PRN (14:30)
[2024-07-20] MEDS ORDERED: Glucagon 1 MG/ML KIT IM PRN (14:30)
[2024-07-20] MEDS ORDERED: Acetaminophen 325 MG TAB PO PRN (14:30)
[2024-07-20] MEDS ORDERED: Dextrose 50% Abboject 50 ML SYRINGE SLOW IVP PRN (14:30)
[2024-07-20] MEDS ORDERED: Heparin 5,000 UNITS/ML VIAL SC SCH (15:00)
[2024-07-20] MEDS ORDERED: Vancomycin 1 GM/200 ML (FROZEN) BAG ONE (15:15)
[2024-07-20] MEDS ORDERED: Heparin 10,000 UNITS/ 10 ML VIAL SLOW IVP SCH (15:45)
[2024-07-20] MEDS: Heparin 10,000 UNITS/ 10 ML VIAL SLOW IVP SCH (15:57)
[2024-07-20] MEDS: Lactated Ringer's 1,000 ML IV SCH (16:02)
[2024-07-20 16:27] VITALS: BMI 46.7
[2024-07-20] MEDS ORDERED: NOREPINEPHRINE 8 MG/250 ML-D5W 250 ML IVPB SCH ×2 (16:45)
[2024-07-20] MEDS: Cefepime 1 GM in Sodium Chloride 0.9% 100 ML IVPB SCH (17:12)
[2024-07-20] MEDS: Bisacodyl 5 MG TAB PO SCH (17:12)
[2024-07-20 17:25] LABS: Bacteria/HPF None Seen HPF (None Seen); Bilirubin Negative (Negative); Blood, Urine Trace (Negative); CAUTI Indications for Culture Pelvic or flank pain; Clarity Clear (Clear); Glucose, Urine (Dipstick) Normal (Negative); Ketone, Urine Negative (Negative); Leukocyte Negative Leu/uL (Negative); Nitrite Negative (Negative); Protein, Urine (Dipstick) Negative (Neg-Trace); RBC/HPF None Seen HPF (0-3); Squamous Epithelial 0-3 HPF (0-3); Urobilinogen Normal mg/dL (Less than 2); WBC/HPF 0-3 HPF (0-3); pH, Urine 5.5 (5.0-9.0)
[2024-07-20] MEDS: Vancomycin (BATCH) 2.5 GM in Premix 1 BAG IVPB SCH (17:37)
[2024-07-20 17:50] LABS: Urine Culture Reflex No No
[2024-07-20 17:59] LABS: Hematocrit 38.9 % (42.0-52.0); Hemoglobin 13.1 g/dL (14.0-18.0); Platelet Count 242 10x3/uL (130-400)
[2024-07-20 17:59] LABS: Creatinine, Urine 79.35 mg/dL (22-328)
[2024-07-20] MEDS: traMADol HCl 50 MG TAB PO SCH (20:15)
[2024-07-20] MEDS: Acetaminophen 325 MG TAB PO SCH (20:16)
[2024-07-20] MEDS: Clindamycin/D5W 900 MG in Premix 1 BAG IVPB SCH (21:46)
[2024-07-20] MEDS: diphenhydrAMINE 25 MG CAP PO SCH (22:06)
[2024-07-20] MEDS: Sodium Chloride 0.9% 1,000 ML IV SCH (22:06)
[2024-07-20] MEDS: Morphine 2 MG/ML VIAL SLOW IVP PRN (23:18)
[2024-07-20 23:51] LABS: Hematocrit 36.4 % (42.0-52.0); Hemoglobin 12.2 g/dL (14.0-18.0)
[2024-07-21] MEDS: Heparin 25,000 units/D5W 500 ML IVPB SCH (00:27)
[2024-07-21 04:19] LABS: #Basophils Less than 0.03 10x3/uL (0.0-0.2); %Basophils 0.2 % (0.0-1.0); %Eosinophils 3.7 % (0.0-10.0); %Monocytes 11.4 % (0.0-10.0); %Neutrophils 72.1 % (42.0-75.0); Hematocrit 34.8 % (42.0-52.0); Hemoglobin 11.8 g/dL (14.0-18.0); Mean Corpuscular HGB CONC 33.9 g/dL (32.0-36.0); Mean Corpuscular Hemoglobin 30.8 pg (27.0-31.0); Mean Corpuscular Volume 90.9 fL (78.0-98.0); Mean Platelet Volume 10.3 fL (7.4-10.4); Platelet Count 210 10x3/uL (130-400); RBC Distribution Width 12.2 % (11.5-14.5); Red Blood Cell (RBC) Count 3.83 mill/uL (4.70-6.10)
[2024-07-21 04:34] LABS: Vancomycin, Random 15.4 ug/mL (See Comment)
[2024-07-21 04:42] LABS: ALT (SGPT) 28 U/L (8-55); AST (SGOT) 26 U/L (5-34); Albumin 2.6 g/dL (3.5-5.0); Alkaline Phosphatase 56 U/L (40-110); Anion Gap 9 mmol/L (10-20); BUN (Urea Nitrogen) 35 mg/dL (8.4-25.7); Bilirubin, Total 0.3 mg/dL (0.2-1.2); Calc. Creatinine Clearance 122 mL/min (70-130); Calcium 8.3 mg/dL (7.8-10.44); Carbon Dioxide 22 mmol/L (22-29); Chloride 110 mmol/L (98-107); Estimated GFR 47; Glucose 169 mg/dL (70-105); Potassium 4.2 mmol/L (3.5-5.1); Protein, Total 5.6 g/dL (6.0-8.3); Sodium 137 mmol/L (136-145)
[2024-07-21] MEDS: Vancomycin 1 GM in Premix 1 BAG IVPB SCH (05:28)
[2024-07-21] MEDS: Insulin Lispro 100 UNIT/ML 10 ML VIAL SC PRN (05:57)
[2024-07-21] MEDS: traMADol HCl 50 MG TAB PO PRN (07:37)
[2024-07-21] MEDS ORDERED: Heparin 25,000 units/D5W 500 ML IVPB SCH (07:45)
[2024-07-21] MEDS ORDERED: Heparin 10,000 UNITS/ 10 ML VIAL SLOW IVP SCH (07:45)
[2024-07-21 08:24] LABS: Hematocrit 36.1 % (42.0-52.0); Hemoglobin 12.1 g/dL (14.0-18.0); Platelet Count 229 10x3/uL (130-400)
[2024-07-21] MEDS: Atorvastatin Calcium 40 MG TAB PO SCH (08:26)
[2024-07-21] MEDS: Gabapentin 300 MG CAP PO SCH (08:26)
[2024-07-21] MEDS: levETIRAcetam 500 MG TAB PO SCH (08:26)
[2024-07-21] MEDS: Colestipol 1 GM TAB PO SCH (08:28)
[2024-07-21] MEDS: OXcarbazepine 300 MG TAB PO SCH (08:28)
[2024-07-21 08:33] LABS: Magnesium 1.9 mg/dL (1.6-2.6); Phosphorus 3.3 mg/dL (2.3-4.7)
[2024-07-21] MEDS ORDERED: Enoxaparin 120 MG/0.8 ML SYRINGE SC SCH (09:00)
[2024-07-21] MEDS ORDERED: Enoxaparin 60 MG (0.6 mL) SYRINGE SC SCH (09:00)
[2024-07-21] MEDS ORDERED: Heparin 10,000 UNITS/ 10 ML VIAL ONE (09:29)
[2024-07-21] MEDS: Enoxaparin 120 MG/0.8 ML SYRINGE SC SCH ×2 (10:54→20:29)
[2024-07-21] MEDS: Enoxaparin 60 MG (0.6 mL) SYRINGE SC SCH ×2 (10:55→20:29)
[2024-07-21] MEDS: Magnesium 2 GM/50 ML(in water) 2 GM in Premix 1 BAG IVPB SCH (11:57)
[2024-07-21] MEDS: Lithium Carbonate 300 MG ER.TAB PO SCH ×2 (12:00→20:31)
[2024-07-21] MEDS: Metoprolol Tartrate 50 MG TAB PO SCH ×2 (12:04→20:31)
[2024-07-21] MEDS: Fentanyl 100 MCG/2 ML VIAL SLOW IVP SCH (14:18)
[2024-07-21] MEDS: fentaNYL 50 mcg/mL 1 mL Vial SLOW IVP PRN (14:51)
[2024-07-21] MEDS: Cefepime 2 GM in Sodium Chloride 0.9% 100 ML IVPB SCH (16:12)
[2024-07-21] MEDS ORDERED: Vancomycin 1.5 GRAM/300 ML BAG 1.5 GM in Premix 1 BAG IVPB SCH (17:00)
[2024-07-21] MEDS ORDERED: Cariprazine Hcl [Vraylar] 1.5 MG Capsule PO SCH (21:00)
[2024-07-22 04:13] LABS: #Basophils 0.04 10x3/uL (0.0-0.2); %Basophils 0.4 % (0.0-1.0); %Eosinophils 5.3 % (0.0-10.0); %Lymphocytes 14.1 % (21.0-51.0); %Monocytes 10.4 % (0.0-10.0); %Neutrophils 68.7 % (42.0-75.0); Hematocrit 39.2 % (42.0-52.0); Hemoglobin 12.6 g/dL (14.0-18.0); Mean Corpuscular HGB CONC 32.1 g/dL (32.0-36.0); Mean Corpuscular Hemoglobin 29.9 pg (27.0-31.0); Mean Corpuscular Volume 93.1 fL (78.0-98.0); Mean Platelet Volume 10.5 fL (7.4-10.4); Platelet Count 264 10x3/uL (130-400); RBC Distribution Width 12.5 % (11.5-14.5); Red Blood Cell (RBC) Count 4.21 mill/uL (4.70-6.10)
[2024-07-22 04:34] LABS: Vancomycin, Random 8.6 ug/mL (See Comment)
[2024-07-22 04:38] LABS: ALT (SGPT) 29 U/L (8-55); AST (SGOT) 20 U/L (5-34); Alkaline Phosphatase 58 U/L (40-110); Anion Gap 11 mmol/L (10-20); BUN (Urea Nitrogen) 24 mg/dL (8.4-25.7); Bilirubin, Total 0.5 mg/dL (0.2-1.2); Calc. Creatinine Clearance 182 mL/min (70-130); Calcium 9.2 mg/dL (7.8-10.44); Carbon Dioxide 23 mmol/L (22-29); Chloride 110 mmol/L (98-107); Estimated GFR 77; Globulin 3.9 g/dL (2.4-3.5); Glucose 127 mg/dL (70-105); Potassium 4.1 mmol/L (3.5-5.1); Protein, Total 6.9 g/dL (6.0-8.3); Sodium 140 mmol/L (136-145)
[2024-07-22 07:14] LABS: Magnesium 2.1 mg/dL (1.6-2.6)
[2024-07-22] MEDS: hydrOXYzine 25 MG TAB PO SCH (09:54)
[2024-07-22] MEDS: NIFEdipine XL 30 MG ER.TAB PO SCH (11:02)
[2024-07-22] MEDS: Ibuprofen 800 MG TAB PO SCH (11:04)
[2024-07-23] MEDS: HYDROcodone/Acetaminophen 5/325 mg Tablet PO PRN (02:13)
[2024-07-23 04:26] LABS: #Basophils 0.04 10x3/uL (0.0-0.2); %Basophils 0.6 % (0.0-1.0); %Eosinophils 5.5 % (0.0-10.0); %Monocytes 11.5 % (0.0-10.0); %Neutrophils 63.3 % (42.0-75.0); Hematocrit 34.1 % (42.0-52.0); Hemoglobin 11.3 g/dL (14.0-18.0); Mean Corpuscular HGB CONC 33.1 g/dL (32.0-36.0); Mean Corpuscular Hemoglobin 29.7 pg (27.0-31.0); Mean Corpuscular Volume 89.7 fL (78.0-98.0); Mean Platelet Volume 10.7 fL (7.4-10.4); Platelet Count 215 10x3/uL (130-400); RBC Distribution Width 12.4 % (11.5-14.5)
[2024-07-23 05:10] LABS: ALT (SGPT) 24 U/L (8-55); AST (SGOT) 17 U/L (5-34); Albumin 2.7 g/dL (3.5-5.0); Alkaline Phosphatase 52 U/L (40-110); Anion Gap 10 mmol/L (10-20); BUN (Urea Nitrogen) 14 mg/dL (8.4-25.7); Bilirubin, Total 0.5 mg/dL (0.2-1.2); Calc. Creatinine Clearance 234 mL/min (70-130); Calcium 8.8 mg/dL (7.8-10.44); Carbon Dioxide 21 mmol/L (22-29); Chloride 113 mmol/L (98-107); Estimated GFR 101; Globulin 3.4 g/dL (2.4-3.5); Glucose 148 mg/dL (70-105); Potassium 4.1 mmol/L (3.5-5.1); Protein, Total 6.1 g/dL (6.0-8.3); Sodium 140 mmol/L (136-145)
[2024-07-23] MEDS: NIFEdipine XL 30 MG ER.TAB PO SCH (09:02)
[2024-07-23] MEDS: Lithium Carbonate 150 MG CAP PO SCH (20:56)
[2024-07-23] MEDS: OXcarbazepine 150 MG TAB PO SCH (20:58)
[2024-07-24 04:29] LABS: #Basophils 0.05 10x3/uL (0.0-0.2); %Basophils 0.8 % (0.0-1.0); %Eosinophils 6.2 % (0.0-10.0); %Lymphocytes 20.9 % (21.0-51.0); %Neutrophils 59.3 % (42.0-75.0); Hematocrit 35.2 % (42.0-52.0); Hemoglobin 11.9 g/dL (14.0-18.0); Mean Corpuscular HGB CONC 33.8 g/dL (32.0-36.0); Mean Corpuscular Hemoglobin 30.3 pg (27.0-31.0); Mean Corpuscular Volume 89.6 fL (78.0-98.0); Mean Platelet Volume 10.2 fL (7.4-10.4); Platelet Count 237 10x3/uL (130-400); RBC Distribution Width 12.3 % (11.5-14.5); Red Blood Cell (RBC) Count 3.93 mill/uL (4.70-6.10)
[2024-07-24 04:46] LABS: ALT (SGPT) 26 U/L (8-55); AST (SGOT) 17 U/L (5-34); Albumin 2.8 g/dL (3.5-5.0); Alkaline Phosphatase 56 U/L (40-110); Anion Gap 13 mmol/L (10-20); BUN (Urea Nitrogen) 13 mg/dL (8.4-25.7); Bilirubin, Total 0.5 mg/dL (0.2-1.2); Calc. Creatinine Clearance 224 mL/min (70-130); Calcium 8.8 mg/dL (7.8-10.44); Carbon Dioxide 21 mmol/L (22-29); Chloride 112 mmol/L (98-107); Estimated GFR 99; Globulin 3.5 g/dL (2.4-3.5); Glucose 195 mg/dL (70-105); Potassium 4.2 mmol/L (3.5-5.1); Protein, Total 6.3 g/dL (6.0-8.3); Sodium 142 mmol/L (136-145)
[2024-07-24] MEDS ORDERED: Atropine Sulfate 1 mg/10 ml Syringe IVP SCH (05:30)
[2024-07-24] MEDS: Lithium Carbonate 150 MG CAP PO SCH (13:33)
[2024-07-24] MEDS: Enoxaparin 60 MG (0.6 mL) SYRINGE SC SCH (13:44)
[2024-07-24] MEDS: Enoxaparin 120 MG/0.8 ML SYRINGE SC SCH (13:45)
[2024-07-24] MEDS: NIFEdipine XL 30 MG ER.TAB PO SCH (21:15)
[2024-07-24] MEDS: Dabigatran 150 mg Capsule PO SCH (21:16)
[2024-07-25 04:56] LABS: #Basophils 0.05 10x3/uL (0.0-0.2); %Basophils 0.7 % (0.0-1.0); %Eosinophils 6.4 % (0.0-10.0); %Lymphocytes 18.1 % (21.0-51.0); %Monocytes 10.1 % (0.0-10.0); %Neutrophils 63.2 % (42.0-75.0); Hematocrit 33.8 % (42.0-52.0); Hemoglobin 11.6 g/dL (14.0-18.0); Mean Corpuscular HGB CONC 34.3 g/dL (32.0-36.0); Mean Corpuscular Hemoglobin 30.7 pg (27.0-31.0); Mean Corpuscular Volume 89.4 fL (78.0-98.0); Mean Platelet Volume 10.2 fL (7.4-10.4); Platelet Count 261 10x3/uL (130-400); RBC Distribution Width 12.7 % (11.5-14.5); Red Blood Cell (RBC) Count 3.78 mill/uL (4.70-6.10)
[2024-07-25 05:18] LABS: ALT (SGPT) 21 U/L (Less than 45); AST (SGOT) 17 U/L (11-34); Albumin 2.8 g/dL (3.1-4.5); Alkaline Phosphatase 53 U/L (40-110); Anion Gap 11 mmol/L (10-20); BUN (Urea Nitrogen) 12 mg/dL (8.4-25.7); Bilirubin, Total 0.5 mg/dL (0.3-1.2); Calc. Creatinine Clearance 272 mL/min (70-130); Calcium 9.2 mg/dL (7.8-10.44); Carbon Dioxide 23 mmol/L (22-29); Chloride 110 mmol/L (98-107); Estimated GFR 106; Globulin 3.2 g/dL (2.4-3.5); Glucose 149 mg/dL (70-105); Potassium 4.3 mmol/L (3.5-5.1); Sodium 140 mmol/L (136-145)
[2024-07-25] MEDS: diphenhydrAMINE 25 MG CAP PO PRN (20:41)
[2024-07-26 04:57] LABS: #Basophils 0.05 10x3/uL (0.0-0.2); %Basophils 0.6 % (0.0-1.0); %Monocytes 8.8 % (0.0-10.0); %Neutrophils 63.1 % (42.0-75.0); Hemoglobin 11.9 g/dL (14.0-18.0); Mean Corpuscular HGB CONC 33.1 g/dL (32.0-36.0); Mean Corpuscular Hemoglobin 29.8 pg (27.0-31.0); Mean Platelet Volume 9.7 fL (7.4-10.4); Platelet Count 256 10x3/uL (130-400); RBC Distribution Width 12.7 % (11.5-14.5)
[2024-07-26 05:15] LABS: ALT (SGPT) 23 U/L (Less than 45); AST (SGOT) 20 U/L (11-34); Alkaline Phosphatase 53 U/L (40-110); Anion Gap 13 mmol/L (10-20); BUN (Urea Nitrogen) 14 mg/dL (8.4-25.7); Bilirubin, Total 0.5 mg/dL (0.3-1.2); Calc. Creatinine Clearance 210 mL/min (70-130); Calcium 9.4 mg/dL (7.8-10.44); Carbon Dioxide 23 mmol/L (22-29); Chloride 108 mmol/L (98-107); Estimated GFR 92; Globulin 3.1 g/dL (2.4-3.5); Glucose 215 mg/dL (70-105); Potassium 4.5 mmol/L (3.5-5.1); Protein, Total 6.1 g/dL (6.0-8.3); Sodium 139 mmol/L (136-145)
[2024-07-26 11:44] VITALS: BP 164/79; TEMP 98.4
== END 2024-07-26 14:00 | disposition home or self-care (01) | DRG 557 ==
LOC: ERS 10:07 → CCU 15:26 → 2NO 07-21 11:29 → IMCU/EMU 07-22 20:51 → CCU 07-22 20:52 → 2NO 07-23 17:20
PROVIDERS: ADMIT Family Medicine; ATTEND Family Medicine
PROC: 3E033XZ Introduction of Vasopressor into Peripheral Vein, Percutaneous Approach (ICD-10-PCS; principal; 2024-07-20)
DX: M72.8 Other fibroblastic disorders (principal); J96.01 Acute respiratory failure with hypoxia; R57.1 Hypovolemic shock; N17.9 Acute kidney failure, unspecified; I47.20 Ventricular tachycardia, unspecified; E87.1 Hypo-osmolality and hyponatremia; M62.82 Rhabdomyolysis; S76.011A Strain of muscle, fascia and tendon of right hip, initial encounter; R00.1 Bradycardia, unspecified; I10 Essential (primary) hypertension; E78.5 Hyperlipidemia, unspecified; E11.9 Type 2 diabetes mellitus without complications; Z86.73 Personal history of transient ischemic attack (TIA), and cerebral infarction without residual deficits; Z86.711 Personal history of pulmonary embolism; Z79.01 Long term (current) use of anticoagulants; I48.0 Paroxysmal atrial fibrillation; E66.01 Morbid (severe) obesity due to excess calories; E86.0 Dehydration; R63.8 Other symptoms and signs concerning food and fluid intake; G47.33 Obstructive sleep apnea (adult) (pediatric); Z99.89 Dependence on other enabling machines and devices; E88.810 Metabolic syndrome; Z79.899 Other long term (current) drug therapy; G40.909 Epilepsy, unspecified, not intractable, without status epilepticus; I95.9 Hypotension, unspecified; E87.6 Hypokalemia; Z90.49 Acquired absence of other specified parts of digestive tract; Z95.818 Presence of other cardiac implants and grafts; R79.89 Other specified abnormal findings of blood chemistry; Z86.718 Personal history of other venous thrombosis and embolism; F31.9 Bipolar disorder, unspecified; F41.9 Anxiety disorder, unspecified; I49.5 Sick sinus syndrome
CPT/HCPCS: 36415; 36416; 36556; 74176; 80053; 80178; 80202; 81001; 82533; 82550; 82570; 82805; 83605; 83735; 84100; 84145; 84300; 85025; 85610; 85730; 86141; 87040; 87081; 93005; 94660; 94760; 96374; 96375; J0692; J0696; J1644; J1650; J1815; J2272; J3010; J3370; J3475; J3490; J7030; J7120

== ENCOUNTER 2024-08-10 02:36 | Inpatient (IN) | payer OTHER ==
[2024-08-10] MEDS ORDERED: Morphine 4 MG/ML VIAL ONE (03:22)
[2024-08-10] MEDS ORDERED: Ondansetron PF 4 MG/2 ML Vial ONE (03:22)
[2024-08-10] MEDS ORDERED: Ketorolac Tromethamine 30 MG (1 mL) VIAL ONE (03:22)
[2024-08-10 03:50] LABS: #Basophils Less than 0.03 10x3/uL (0.0-0.2); %Basophils 0.2 % (0.0-1.0); %Eosinophils 1.2 % (0.0-10.0); %Lymphocytes 15.9 % (21.0-51.0); %Monocytes 7.9 % (0.0-10.0); Hematocrit 37.5 % (42.0-52.0); Hemoglobin 12.9 g/dL (14.0-18.0); Mean Corpuscular HGB CONC 34.4 g/dL (32.0-36.0); Mean Corpuscular Hemoglobin 30.9 pg (27.0-31.0); Mean Corpuscular Volume 89.7 fL (78.0-98.0); Mean Platelet Volume 10.1 fL (7.4-10.4); Platelet Count 220 10x3/uL (130-400); Red Blood Cell (RBC) Count 4.18 mill/uL (4.70-6.10)
[2024-08-10 04:04] LABS: INR-International Normal Ratio 1.1; PTT 34.8 sec (22.9-36.1); Prothrombin Time 13.9 sec (12.0-14.7)
[2024-08-10 04:35] LABS: ALT (SGPT) 45 U/L (Less than 45); AST (SGOT) 32 U/L (11-34); Albumin 3.5 g/dL (3.1-4.5); Alkaline Phosphatase 70 U/L (40-110); Anion Gap 16 mmol/L (10-20); BUN (Urea Nitrogen) 27 mg/dL (8.4-25.7); Bilirubin, Total 0.4 mg/dL (0.3-1.2); Calc. Creatinine Clearance 0 mL/min (70-130); Calcium 8.8 mg/dL (7.8-10.44); Carbon Dioxide 19 mmol/L (22-29); Chloride 110 mmol/L (98-107); Estimated GFR 83; Globulin 2.8 g/dL (2.4-3.5); Glucose 234 mg/dL (70-105); Potassium 4.6 mmol/L (3.5-5.1); Protein, Total 6.3 g/dL (6.0-8.3); Sodium 140 mmol/L (136-145)
[2024-08-10] MEDS ORDERED: Lidocaine 4% Patch ONE (04:48)
[2024-08-10] MEDS ORDERED: Acetaminophen 325 MG TAB PO PRN (06:15)
[2024-08-10] MEDS ORDERED: Glucagon 1 MG/ML KIT IM PRN (07:34)
[2024-08-10] MEDS ORDERED: Dextrose 50% Abboject 50 ML SYRINGE SLOW IVP PRN (07:34)
[2024-08-10] MEDS ORDERED: Dextrose 5% in Water 1,000 ML IV PRN (07:34)
[2024-08-10] MEDS: Morphine 4 MG/ML VIAL SLOW IVP PRN (08:58)
[2024-08-10 12:22] VITALS: BMI 46.1
[2024-08-10 13:45] VITALS: BMI 46.1
[2024-08-10] MEDS: Ketorolac Tromethamine 30 MG (1 mL) VIAL IVP SCH (14:22)
[2024-08-10] MEDS ORDERED: cloNIDine 0.1 MG TAB PO PRN (16:10)
[2024-08-10] MEDS ORDERED: Furosemide 40 MG TAB PO PRN (16:10)
[2024-08-10] MEDS: HYDROcodone/Acetaminophen 10/325 mg Tablet PO PRN (17:09)
[2024-08-10] MEDS: Insulin Lispro 100 UNIT/ML 10 ML VIAL SC PRN ×2 (17:10→21:33)
[2024-08-10] MEDS: Gabapentin 300 MG CAP PO SCH (20:28)
[2024-08-10] MEDS: OXcarbazepine 150 MG TAB PO SCH (20:29)
[2024-08-10] MEDS: Cariprazine Hcl [Vraylar] 1.5 MG Capsule PO SCH (20:29)
[2024-08-10] MEDS: levETIRAcetam 500 MG TAB PO SCH (20:29)
[2024-08-10] MEDS ORDERED: Enoxaparin 120 MG/0.8 ML SYRINGE SC SCH ×2 (21:00)
[2024-08-10] MEDS ORDERED: METHYLPHENIDATE HCL 20 MG PO SCH (21:00)
[2024-08-10 21:41] LABS: Troponin I Less than 0.010 ng/mL (< 0.028)
[2024-08-11 07:14] LABS: #Basophils Less than 0.03 10x3/uL (0.0-0.2); %Basophils 0.3 % (0.0-1.0); %Eosinophils 1.9 % (0.0-10.0); %Lymphocytes 15.8 % (21.0-51.0); %Neutrophils 69.2 % (42.0-75.0); Hematocrit 34.1 % (42.0-52.0); Hemoglobin 11.3 g/dL (14.0-18.0); Mean Corpuscular HGB CONC 33.1 g/dL (32.0-36.0); Mean Corpuscular Hemoglobin 30.8 pg (27.0-31.0); Mean Corpuscular Volume 92.9 fL (78.0-98.0); Platelet Count 194 10x3/uL (130-400); RBC Distribution Width 15.5 % (11.5-14.5); Red Blood Cell (RBC) Count 3.67 mill/uL (4.70-6.10)
[2024-08-11 07:52] LABS: Anion Gap 12 mmol/L (10-20); BUN (Urea Nitrogen) 16 mg/dL (8.4-25.7); Calc. Creatinine Clearance 318 mL/min (70-130); Calcium 8.6 mg/dL (7.8-10.44); Carbon Dioxide 22 mmol/L (22-29); Chloride 108 mmol/L (98-107); Estimated GFR 112; Glucose 230 mg/dL (70-105); Potassium 4.3 mmol/L (3.5-5.1); Sodium 138 mmol/L (136-145)
[2024-08-11] MEDS: NIFEdipine XL 60 MG ER.TAB PO SCH (08:03)
[2024-08-11] MEDS: Lisinopril 20 MG TAB PO SCH (08:03)
[2024-08-11] MEDS: Thiamine 100 MG TAB PO SCH (08:03)
[2024-08-11] MEDS: Atorvastatin Calcium 40 MG TAB PO SCH (08:03)
[2024-08-11] MEDS: Morphine 2 MG/ML VIAL SLOW IVP SCH (12:13)
[2024-08-11 17:01] VITALS: TEMP 98.7
[2024-08-11 20:11] VITALS: BP 103/68
== END 2024-08-11 21:50 | disposition short-term general hospital (02) | DRG 538 ==
LOC: ERS 02:36 → T4-B 08:31 → OBSVTOIN 08-11 14:22
PROVIDERS: ADMIT Family Medicine; ATTEND Family Medicine
DX: S73.191A Other sprain of right hip, initial encounter (principal); M16.11 Unilateral primary osteoarthritis, right hip; I10 Essential (primary) hypertension; E11.9 Type 2 diabetes mellitus without complications; I48.91 Unspecified atrial fibrillation; F31.9 Bipolar disorder, unspecified; F41.9 Anxiety disorder, unspecified; Z86.711 Personal history of pulmonary embolism; Z79.01 Long term (current) use of anticoagulants; Z86.73 Personal history of transient ischemic attack (TIA), and cerebral infarction without residual deficits; Z86.718 Personal history of other venous thrombosis and embolism; Z90.49 Acquired absence of other specified parts of digestive tract; E78.00 Pure hypercholesterolemia, unspecified
CPT/HCPCS: 36415; 36416; 80048; 80053; 80178; 84484; 85025; 85610; 85730; 86141; 87040; 93005; 96376; G0378; J1815; J1885; J2270; J2272; J2405

== ENCOUNTER 2024-08-27 17:39 | Inpatient (IN) | payer OTHER ==
[2024-08-27 19:36] LABS: #Basophils 0.08 10x3/uL (0.0-0.2); %Basophils 0.8 % (0.0-1.0); %Eosinophils 2.5 % (0.0-10.0); %Lymphocytes 18.8 % (21.0-51.0); %Monocytes 9.7 % (0.0-10.0); Hematocrit 41.4 % (42.0-52.0); Hemoglobin 13.5 g/dL (14.0-18.0); Mean Corpuscular HGB CONC 32.6 g/dL (32.0-36.0); Mean Corpuscular Hemoglobin 30.1 pg (27.0-31.0); Mean Corpuscular Volume 92.4 fL (78.0-98.0); Mean Platelet Volume 9.3 fL (7.4-10.4); Platelet Count 500 10x3/uL (130-400); RBC Distribution Width 15.9 % (11.5-14.5); Red Blood Cell (RBC) Count 4.48 mill/uL (4.70-6.10)
[2024-08-27 19:50] LABS: Anion Gap 15 mmol/L (10-20); BUN (Urea Nitrogen) 39 mg/dL (8.4-25.7); Calc. Creatinine Clearance 0 mL/min (70-130); Calcium 9.4 mg/dL (7.8-10.44); Carbon Dioxide 22 mmol/L (22-29); Chloride 107 mmol/L (98-107); Estimated GFR 33; Glucose 267 mg/dL (70-105); Potassium 5.2 mmol/L (3.5-5.1); Sodium 139 mmol/L (136-145)
[2024-08-27 20:04] LABS: INR-International Normal Ratio 1.7; Prothrombin Time 20.3 sec (12.0-14.7)
[2024-08-27] MEDS ORDERED: Glucagon 1 MG/ML KIT IM PRN (21:49)
[2024-08-27] MEDS ORDERED: Dextrose 5% in Water 1,000 ML IV PRN (21:49)
[2024-08-27] MEDS ORDERED: Dextrose 50% Abboject 50 ML SYRINGE SLOW IVP PRN (21:49)
[2024-08-27] MEDS ORDERED: Ondansetron ODT 4 MG TAB PO PRN (21:49)
[2024-08-27] MEDS ORDERED: Melatonin 3 MG TAB PO PRN (21:53)
[2024-08-27] MEDS ORDERED: Insulin Lispro 100 UNIT/ML 10 ML VIAL SC PRN (22:18)
[2024-08-27 22:34] VITALS: BMI 45.3
[2024-08-27] MEDS: Warfarin Sodium 7.5 MG TAB PO SCH (23:31)
[2024-08-27] MEDS ORDERED: Insulin Glargine 30 UNITS/0.3 ML VIAL ONE (23:39)
[2024-08-27] MEDS: Sodium Chloride 0.9% 1,000 ML IV SCH (23:51)
[2024-08-27] MEDS: Insulin Glargine 30 UNITS/0.3 ML VIAL SC SCH (23:51)
[2024-08-28 05:02] LABS: INR-International Normal Ratio 1.8
[2024-08-28 05:05] LABS: Anion Gap 15 mmol/L (10-20); BUN (Urea Nitrogen) 39 mg/dL (8.4-25.7); Calc. Creatinine Clearance 123 mL/min (70-130); Calcium 8.8 mg/dL (7.8-10.44); Carbon Dioxide 18 mmol/L (22-29); Chloride 111 mmol/L (98-107); Estimated GFR 50; Glucose 183 mg/dL (70-105); Potassium 4.6 mmol/L (3.5-5.1); Sodium 139 mmol/L (136-145)
[2024-08-28 05:19] LABS: Hematocrit 38.6 % (42.0-52.0); Hemoglobin 12.4 g/dL (14.0-18.0); Mean Corpuscular HGB CONC 32.1 g/dL (32.0-36.0); Mean Corpuscular Hemoglobin 30.2 pg (27.0-31.0); Mean Corpuscular Volume 93.9 fL (78.0-98.0); Mean Platelet Volume 9.3 fL (7.4-10.4); Platelet Count 440 10x3/uL (130-400); RBC Distribution Width 15.9 % (11.5-14.5); Red Blood Cell (RBC) Count 4.11 mill/uL (4.70-6.10)
[2024-08-28 05:55] LABS: Burr Cells SLIGHT = 2-5 cells HPF (0-1); Eosinophils 4 % (0-10); Large Platelets 1.9 % (0-5); Lymphocytes 21 % (21-51); Macrocytosis SLIGHT = 6-15 cells HPF (0-5); Monocytes 8 % (0-10); Neutrophil 66 % (42-75); Platelet Adequacy Comment Platelets Increased; Polychromasia SLIGHT = 2-3 cells HPF (0-2); Smudge Cells 2.9 %
[2024-08-28] MEDS ORDERED: Lisinopril 20 MG TAB PO SCH (09:00)
[2024-08-28] MEDS ORDERED: Atorvastatin Calcium 20 MG TAB ONE (09:40)
[2024-08-28] MEDS ORDERED: levETIRAcetam 500 MG TAB ONE (09:40)
[2024-08-28] MEDS ORDERED: Gabapentin 300 MG CAP ONE (09:40)
[2024-08-28] MEDS ORDERED: Insulin Lispro 100 UNIT/ML 10 ML VIAL ONE (09:49)
[2024-08-28] MEDS: Atorvastatin Calcium 40 MG TAB PO SCH (10:32)
[2024-08-28] MEDS: levETIRAcetam 500 MG TAB PO SCH (10:33)
[2024-08-28] MEDS: Gabapentin 300 MG CAP PO SCH (10:33)
[2024-08-28] MEDS: OXcarbazepine 150 MG TAB PO SCH (10:33)
[2024-08-28] MEDS: Insulin Lispro 100 UNIT/ML 10 ML VIAL SC PRN (10:34)
[2024-08-28] MEDS: Insulin Glargine 30 UNITS/0.3 ML VIAL SC SCH ×2 (12:25→22:26)
[2024-08-28] MEDS: Lactated Ringer's 1,000 ML IV SCH (12:41)
[2024-08-28] MEDS ORDERED: Acetaminophen 325 MG TAB ONE ×2 (12:48→18:53)
[2024-08-28] MEDS: Acetaminophen 325 MG TAB PO PRN (12:51)
[2024-08-28] MEDS ORDERED: Warfarin Sodium 7.5 MG TAB PO SCH (17:00)
[2024-08-28] MEDS: Warfarin Sodium 10 MG TAB PO SCH (17:50)
[2024-08-28] MEDS ORDERED: CARIPRAZINE HCL 1.5 MG PO SCH (21:00)
[2024-08-29 04:25] LABS: #Basophils 0.05 10x3/uL (0.0-0.2); %Basophils 0.7 % (0.0-1.0); %Eosinophils 3.6 % (0.0-10.0); %Lymphocytes 21.1 % (21.0-51.0); %Monocytes 9.1 % (0.0-10.0); %Neutrophils 63.3 % (42.0-75.0); Hematocrit 35.9 % (42.0-52.0); Hemoglobin 11.8 g/dL (14.0-18.0); Mean Corpuscular HGB CONC 32.9 g/dL (32.0-36.0); Mean Corpuscular Hemoglobin 29.9 pg (27.0-31.0); Mean Corpuscular Volume 91.1 fL (78.0-98.0); Mean Platelet Volume 9.5 fL (7.4-10.4); Platelet Count 384 10x3/uL (130-400); RBC Distribution Width 15.4 % (11.5-14.5); Red Blood Cell (RBC) Count 3.94 mill/uL (4.70-6.10)
[2024-08-29 04:53] LABS: Anion Gap 13 mmol/L (10-20); BUN (Urea Nitrogen) 31 mg/dL (8.4-25.7); Calc. Creatinine Clearance 186 mL/min (70-130); Calcium 8.8 mg/dL (7.8-10.44); Carbon Dioxide 21 mmol/L (22-29); Chloride 110 mmol/L (98-107); Estimated GFR 82; Glucose 256 mg/dL (70-105); Potassium 4.5 mmol/L (3.5-5.1); Sodium 139 mmol/L (136-145)
[2024-08-29 04:59] LABS: INR-International Normal Ratio 2.1; Prothrombin Time 23.3 sec (12.0-14.7)
[2024-08-29] MEDS ORDERED: FLU (Fluarix Triv) TS24-25(6MOS UP)/PF 45 MCG/0.5 ML Syringe IM ONE (09:00)
[2024-08-29] MEDS: Thiamine 100 MG TAB PO SCH (09:19)
[2024-08-29 12:44] VITALS: BP 125/74; TEMP 97.2
[2024-08-29] MEDS ORDERED: Warfarin Sodium 7.5 MG TAB PO SCH (17:00)
== END 2024-08-29 15:13 | disposition home or self-care (01) | DRG 640 ==
LOC: ERS 17:39 → ERHOLD 21:07 → INTOOBSV 21:07 → OBSVTOIN 08-28 16:04 → 2NO 08-28 21:12
PROVIDERS: ADMIT Student in an Organized Health Care Education/Training Program; ATTEND Student in an Organized Health Care Education/Training Program
DX: E86.0 Dehydration (principal); I26.99 Other pulmonary embolism without acute cor pulmonale; N17.9 Acute kidney failure, unspecified; E87.5 Hyperkalemia; I95.1 Orthostatic hypotension; I10 Essential (primary) hypertension; E11.9 Type 2 diabetes mellitus without complications; M79.81 Nontraumatic hematoma of soft tissue; R00.1 Bradycardia, unspecified; S73.101A Unspecified sprain of right hip, initial encounter; F31.9 Bipolar disorder, unspecified; G40.909 Epilepsy, unspecified, not intractable, without status epilepticus; E78.00 Pure hypercholesterolemia, unspecified; Z90.49 Acquired absence of other specified parts of digestive tract; Z79.899 Other long term (current) drug therapy; Z86.73 Personal history of transient ischemic attack (TIA), and cerebral infarction without residual deficits
CPT/HCPCS: 36415; 36416; 76999; 80048; 85025; 85610; 93005; G0378; J1815; J7030; J7120